=== PATIENT | female | born 1940 | race Caucasian/White ===

== ENCOUNTER → 2016-07-01 | Outpatient (CLI) | payer MEDICARE ==
[~2016-07-01] MED LIST: ACYCLOVIR800 MG PO; ALPHAGAN-P 0.2%5 ML OPH; ASPIRIN81 M1 PO; CANASA1000 MG RC; CEPHALEXIN500 M1 PO; DELTASONE1 MG PO; DELTASONE5 MG PO; FENTANYL TR25 MCG/HR TD; HYZAAR 25 MG-101 TA1 PO; HYZAAR 50/12.5M1 TAB PO; KEFLEX500 MG PO; LATANOPROST2.5 ML OP; MACROBID100 M1 PO; METHOTREXATE2.5 M1 PO; MULTIPLE VITAMI1 TA5 PO; NATURE'S BLEND F1 MG PO; PREMARIN0.3 M1 PO; PREMARIN0.3 MG PO; PRILOSEC OTC20 MG PO; SLOW FE45 MG PO; SYNTHROID,LEVO75 MCG PO; SYNTHROID0.075 MG PO; SYNTHROID0.125 MG PO; TRADJENTA5 M1 PO; TRAJENTA PO; VICO75300 PO; VITAMIN B COMPL1 CAP PO; VITAMIN D1000 IU PO
[2016-07-01 09:10] LABS: HEMOGLOBIN 9.3 g/dl (12.0-16.0); MEAN CELL VOLUME 112.4 fl (81.0-99.0); MEAN CORPUSCULAR HGB CONC 32.1 g/dl (33.0-37.0); MEAN PLATELET VOLUME 11.8 fl (9.6-12.3); PLATELET COUNT AUTOMATED 174 10*3/uL (130-400); RED BLOOD COUNT 2.58 10*6/uL (4.10-5.10); RED CELL DISTRI WIDTH 14.3 % (0-14.5); WHITE BLOOD COUNT 7.8 10*3/uL (4.8-10.8)
[2016-07-01 09:26] LABS: ALBUMIN 3.6 gm/dl (3.1-4.5); BILIRUBIN, DIRECT 0.2 mg/dL (0.0-0.2); BILIRUBIN, TOTAL 0.7 mg/dl (0.2-1.0); HEMOGLOBIN A1c 5.8 % (4.8-5.6); POTASSIUM 4.4 mmol/L (3.5-5.1); TOTAL PROTEIN 6.7 gm/dL (6.4-8.2)
[2016-07-01 09:28] LABS: EOSINOPHIL # 0.1 10*3/uL (0-0.4); EOSINOPHILS 1 % (1-4); LYMPHOCYTE # 0.9 10*3/uL (1.3-4.4); MONOCYTE # 0.2 10*3/uL (0.1-1.0); NEUTROPHIL # 6.6 10*3/uL (2.3-7.9); NEUTROPHILS 84 % (47-73); PLATELET SUFFICIENCY NORMAL (NORMAL); TOTAL CELLS COUNTED 100 #CELLS
[2016-07-01 09:33] LABS: FREE T4 1.32 ng/dl (0.76-1.46); THYROID STIM HORMONE (HS) 0.236 uIU/ml (0.358-4.75)
== END | disposition home or self-care (01) ==
LOC: LAB 08:51
PROVIDERS: Internal Medicine
DX: I12.9 Hypertensive chronic kidney disease with stage 1 through stage 4 chronic kidney disease, or unspecified chronic kidney disease (principal); E11.22 Type 2 diabetes mellitus with diabetic chronic kidney disease; N18.3 Chronic kidney disease, stage 3 (moderate); E03.8 Other specified hypothyroidism; D50.9 Iron deficiency anemia, unspecified; E78.4 Other hyperlipidemia

== ENCOUNTER → 2016-09-05 | Outpatient (CLI) | payer MEDICARE ==
[2016-09-05 10:41] LABS: HEMATOCRIT 31.1 % (37.0-47.0); HEMOGLOBIN 9.7 g/dl (12.0-16.0); MEAN CELL VOLUME 112.3 fl (81.0-99.0); MEAN CORPUSCULAR HGB CONC 31.2 g/dl (33.0-37.0); MEAN PLATELET VOLUME 12.3 fl (9.6-12.3); PLATELET COUNT AUTOMATED 158 10*3/uL (130-400); RED BLOOD COUNT 2.77 10*6/uL (4.10-5.10); RED CELL DISTRI WIDTH 13.7 % (0-14.5); WHITE BLOOD COUNT 7.2 10*3/uL (4.8-10.8)
[2016-09-05 11:00] LABS: LYMPHOCYTE # 1.2 10*3/uL (1.3-4.4); MONOCYTE # 0.7 10*3/uL (0.1-1.0); NEUTROPHIL # 5.3 10*3/uL (2.3-7.9); NEUTROPHILS 73 % (47-73); TOTAL CELLS COUNTED 100 #CELLS
[2016-09-05 11:01] LABS: PLATELET SUFFICIENCY NORMAL (NORMAL)
[2016-09-05 11:14] LABS: BUN 33 mg/dl (7-24); EST GLOM FILT AFRICAN AMERICAN 44 ml/min; SGOT/AST 25 IU/L (3-35); SGPT/ALT 23 U/L (12-78)
[2016-09-05 11:20] LABS: C-REACTIVE PROTEIN < 0.29 MG/DL (0-0.3)
== END | disposition home or self-care (01) ==
LOC: LAB 10:10
PROVIDERS: Specialist
DX: M06.9 Rheumatoid arthritis, unspecified (principal); R53.83 Other fatigue

== ENCOUNTER → 2016-12-26 | Outpatient (CLI) | payer MEDICARE ==
[2016-12-26 09:09] LABS: HEMATOCRIT 29.6 % (37.0-47.0); HEMOGLOBIN 9.1 g/dl (12.0-16.0); MEAN CELL VOLUME 112.5 fl (81.0-99.0); MEAN CORPUSCULAR HGB 34.6 pg (27.0-31.0); MEAN CORPUSCULAR HGB CONC 30.7 g/dl (33.0-37.0); MEAN PLATELET VOLUME 11.4 fl (9.6-12.3); PLATELET COUNT AUTOMATED 159 10*3/uL (130-400); RED BLOOD COUNT 2.63 10*6/uL (4.10-5.10); RED CELL DISTRI WIDTH 14.4 % (0-14.5); WHITE BLOOD COUNT 6.8 10*3/uL (4.8-10.8)
[2016-12-26 09:43] LABS: ALBUMIN 3.3 gm/dl (3.1-4.5); BILIRUBIN, DIRECT 0.2 mg/dL (0.0-0.2); CREATININE 1.44 mg/dL (0.55-1.02); FREE T4 1.33 ng/dl (0.76-1.46); POTASSIUM 4.5 mmol/L (3.5-5.1)
[2016-12-26 09:48] LABS: THYROID STIM HORMONE (HS) 0.905 uIU/ml (0.358-4.75); TOTAL PROTEIN 6.4 gm/dL (6.4-8.2)
[2016-12-26 10:44] LABS: BASOPHILS 1 % (0-1); TOTAL CELLS COUNTED 100 #CELLS
[2016-12-26 10:45] LABS: PLATELET SUFFICIENCY NORMAL (NORMAL); POLYCHROMASIA SLIGHT
== END | disposition home or self-care (01) ==
LOC: LAB 08:50
PROVIDERS: Internal Medicine
DX: I12.9 Hypertensive chronic kidney disease with stage 1 through stage 4 chronic kidney disease, or unspecified chronic kidney disease (principal); E11.22 Type 2 diabetes mellitus with diabetic chronic kidney disease; N18.3 Chronic kidney disease, stage 3 (moderate); E78.4 Other hyperlipidemia; D50.9 Iron deficiency anemia, unspecified; E03.8 Other specified hypothyroidism; I25.10 Atherosclerotic heart disease of native coronary artery without angina pectoris

== ENCOUNTER 2017-05-14 22:42 | Emergency (ER) | payer MEDICARE ==
[~2017-05-14] VITALS: Ht 162.5 cm; Wt 68.0 kg
[2017-05-14] MEDS ORDERED: CEPHALEXIN500 M1 PO (23:41)
== END 2017-05-15 00:21 | disposition home or self-care (01) ==
LOC: ED 22:42
DX: S81.812A Laceration without foreign body, left lower leg, initial encounter (principal); Z90.710 Acquired absence of both cervix and uterus; Z98.890 Other specified postprocedural states; Z79.899 Other long term (current) drug therapy; Z88.2 Allergy status to sulfonamides; Z88.5 Allergy status to narcotic agent; W55.89XA Other contact with other mammals, initial encounter; Y93.89 Activity, other specified; Y92.89 Other specified places as the place of occurrence of the external cause; Y99.9 Unspecified external cause status

== ENCOUNTER → 2017-05-17 | Outpatient (CLI) | payer MEDICARE | END | disposition home or self-care (01) | LOC: WOUNDCARE 01:37 | DX: I87.332 Chronic venous hypertension (idiopathic) with ulcer and inflammation of left lower extremity (principal); L97.222 Non-pressure chronic ulcer of left calf with fat layer exposed; Z90.710 Acquired absence of both cervix and uterus ==

== ENCOUNTER → 2017-05-25 | Outpatient (CLI) | payer MEDICARE | END | disposition home or self-care (01) | LOC: US 02:34 | DX: I73.9 Peripheral vascular disease, unspecified (principal); I87.332 Chronic venous hypertension (idiopathic) with ulcer and inflammation of left lower extremity; L97.422 Non-pressure chronic ulcer of left heel and midfoot with fat layer exposed ==

== ENCOUNTER → 2017-05-30 | Outpatient (CLI) | payer MEDICARE | END | disposition home or self-care (01) | LOC: WOUNDCARE 04:15 | DX: S81.802D Unspecified open wound, left lower leg, subsequent encounter (principal); I87.2 Venous insufficiency (chronic) (peripheral); I10 Essential (primary) hypertension; Z90.710 Acquired absence of both cervix and uterus; X58.XXXD Exposure to other specified factors, subsequent encounter ==

== ENCOUNTER → 2017-06-07 | Outpatient (CLI) | payer MEDICARE | END | disposition home or self-care (01) | LOC: WOUNDCARE 01:38 | DX: I87.332 Chronic venous hypertension (idiopathic) with ulcer and inflammation of left lower extremity (principal); L97.222 Non-pressure chronic ulcer of left calf with fat layer exposed; E07.9 Disorder of thyroid, unspecified; Z90.710 Acquired absence of both cervix and uterus ==

== ENCOUNTER → 2017-06-14 | Outpatient (CLI) | payer MEDICARE | END | disposition home or self-care (01) | LOC: WOUNDCARE 03:58 | DX: I87.332 Chronic venous hypertension (idiopathic) with ulcer and inflammation of left lower extremity (principal); L97.222 Non-pressure chronic ulcer of left calf with fat layer exposed; I10 Essential (primary) hypertension; Z90.710 Acquired absence of both cervix and uterus ==

== ENCOUNTER → 2017-06-28 | Outpatient (CLI) | payer MEDICARE | END | disposition home or self-care (01) | LOC: WOUNDCARE 01:44 | DX: I87.332 Chronic venous hypertension (idiopathic) with ulcer and inflammation of left lower extremity (principal); L97.222 Non-pressure chronic ulcer of left calf with fat layer exposed; E07.9 Disorder of thyroid, unspecified; Z90.710 Acquired absence of both cervix and uterus ==

== ENCOUNTER → 2017-07-05 | Outpatient (CLI) | payer MEDICARE | END | disposition home or self-care (01) | LOC: WOUNDCARE 01:47 | DX: I87.332 Chronic venous hypertension (idiopathic) with ulcer and inflammation of left lower extremity (principal); L97.222 Non-pressure chronic ulcer of left calf with fat layer exposed; Z90.710 Acquired absence of both cervix and uterus ==

== ENCOUNTER → 2017-07-12 | Outpatient (CLI) | payer MEDICARE | END | disposition home or self-care (01) | LOC: WOUNDCARE 02:11 | DX: I87.332 Chronic venous hypertension (idiopathic) with ulcer and inflammation of left lower extremity (principal); L97.222 Non-pressure chronic ulcer of left calf with fat layer exposed; E07.9 Disorder of thyroid, unspecified; Z90.710 Acquired absence of both cervix and uterus ==

== ENCOUNTER 2017-08-01 19:18 | Inpatient (IN) | payer MEDICARE ==
[~2017-08-01] VITALS: Ht 162.6 cm; Wt 71.0 kg
[2017-08-01 19:28] VITALS: BP 161/62
[2017-08-01 20:00] VITALS: BP 152/60
[2017-08-01 20:13] LABS: BILIRUBIN NEGATIVE (NEGATIVE); BLOOD 2+ (NEGATIVE); CLARITY SL CLOUDY (CLEAR); COLOR YELLOW (YELLOW); GLUCOSE NEGATIVE (NEGATIVE); KETONE NEGATIVE (NEGATIVE); LEUKO ESTERASE 1+ (NEGATIVE); NITRITE NEGATIVE (NEGATIVE); UROBILINOGEN 0.2 E.U./dl (0.2-1.0)
[2017-08-01 20:14] LABS: BASO % 0.3 % (0.0-1.0); EOS # 0.2 10*3/uL (0.0-0.4); EOS % 1.5 % (1.0-4.0); HEMATOCRIT 35.4 % (37.0-47.0); HEMOGLOBIN 11.1 g/dl (12.0-16.0); LYMPH # 1.5 10*3/uL (1.3-4.4); LYMPH % 15.4 % (27.0-41.0); MEAN CELL VOLUME 106.3 fl (81.0-99.0); MEAN CORPUSCULAR HGB 33.3 pg (27.0-31.0); MEAN CORPUSCULAR HGB CONC 31.4 g/dl (33.0-37.0); MONO # 0.7 10*3/uL (0.1-1.0); MONO % 6.7 % (3.0-9.0); NEUT # 7.2 10*3/uL (2.3-7.9); NEUT % 74.9 % (47.0-73.0); PLATELET COUNT AUTOMATED 245 10*3/uL (130-400); RED BLOOD COUNT 3.33 10*6/uL (4.10-5.10); RED CELL DISTRI WIDTH 13.3 % (0-14.5); WHITE BLOOD COUNT 9.7 10*3/uL (4.8-10.8)
[2017-08-01 20:29] LABS: ALBUMIN 3.4 gm/dl (3.1-4.5); CREATININE 1.48 mg/dL (0.55-1.02); POTASSIUM 4.7 mmol/L (3.5-5.1); TOTAL PROTEIN 7.2 gm/dL (6.4-8.2)
[2017-08-01 20:32] LABS: BACTERIA 4+; RBC 0-2 rbc/hpf (0-2)
[2017-08-01 22:12] VITALS: BP 152/60
[2017-08-02] VITALS: BP 152/60
[2017-08-02 03:40] LABS: HEMATOCRIT 31.9 % (37.0-47.0); HEMOGLOBIN 9.8 g/dl (12.0-16.0); MEAN CELL VOLUME 108.9 fl (81.0-99.0); MEAN CORPUSCULAR HGB 33.4 pg (27.0-31.0); MEAN CORPUSCULAR HGB CONC 30.7 g/dl (33.0-37.0); MEAN PLATELET VOLUME 10.8 fl (9.6-12.3); PLATELET COUNT AUTOMATED 216 10*3/uL (130-400); RED BLOOD COUNT 2.93 10*6/uL (4.10-5.10); RED CELL DISTRI WIDTH 13.3 % (0-14.5); WHITE BLOOD COUNT 7.8 10*3/uL (4.8-10.8)
[2017-08-02 04:10] LABS: BASOPHILS 1 % (0-1); PLATELET SUFFICIENCY NORMAL (NORMAL); TOTAL CELLS COUNTED 100 #CELLS
[2017-08-02 04:11] LABS: SCHISTOCYTES FEW
[2017-08-02 04:16] LABS: ALBUMIN 2.8 gm/dl (3.1-4.5); CREATININE 1.4 mg/dL (0.55-1.02); PHOSPHOROUS 3.7 mg/dL (2.5-4.9); POTASSIUM 4.4 mmol/L (3.5-5.1); TOTAL PROTEIN 6.3 gm/dL (6.4-8.2)
[2017-08-02 04:22] LABS: FREE T4 1.52 ng/dl (0.76-1.46); THYROID STIM HORMONE (HS) 1.56 uIU/ml (0.358-4.75)
[2017-08-02 07:29] LABS: VITAMIN D, 25-HYDROXY 33.1 ng/mL (30-100)
[2017-08-02 08:00] VITALS: BP 172/52
[2017-08-02 16:00] VITALS: BP 136/63
[2017-08-02 20:00] VITALS: BP 145/49
[2017-08-03 00:22] VITALS: BP 123/45
[2017-08-03 06:31] LABS: HEMATOCRIT 31.4 % (37.0-47.0); HEMOGLOBIN 9.8 g/dl (12.0-16.0); MEAN CELL VOLUME 108.3 fl (81.0-99.0); MEAN CORPUSCULAR HGB 33.8 pg (27.0-31.0); MEAN CORPUSCULAR HGB CONC 31.2 g/dl (33.0-37.0); MEAN PLATELET VOLUME 11.4 fl (9.6-12.3); PLATELET COUNT AUTOMATED 248 10*3/uL (130-400); RED CELL DISTRI WIDTH 13.2 % (0-14.5); WHITE BLOOD COUNT 7.5 10*3/uL (4.8-10.8)
[2017-08-03 06:42] LABS: CREATININE 1.3 mg/dL (0.55-1.02); POTASSIUM 4.2 mmol/L (3.5-5.1)
[2017-08-03 07:33] LABS: OVALOCYTES MODERATE; TOTAL CELLS COUNTED 100 #CELLS
[2017-08-03 07:34] LABS: PLATELET SUFFICIENCY NORMAL (NORMAL)
[2017-08-03 08:00] VITALS: BP 175/46
[2017-08-03 12:00] VITALS: BP 136/40
[2017-08-03 16:00] VITALS: BP 149/57
[2017-08-03 20:00] VITALS: BP 138/47
[2017-08-04] VITALS: BP 135/54
[2017-08-04 06:16] LABS: HEMATOCRIT 31.1 % (37.0-47.0); HEMOGLOBIN 9.8 g/dl (12.0-16.0); MEAN CELL VOLUME 107.2 fl (81.0-99.0); MEAN CORPUSCULAR HGB 33.8 pg (27.0-31.0); MEAN CORPUSCULAR HGB CONC 31.5 g/dl (33.0-37.0); MEAN PLATELET VOLUME 11.2 fl (9.6-12.3); PLATELET COUNT AUTOMATED 258 10*3/uL (130-400); RED CELL DISTRI WIDTH 13.2 % (0-14.5); WHITE BLOOD COUNT 8.3 10*3/uL (4.8-10.8)
[2017-08-04 06:29] LABS: CREATININE 1.19 mg/dL (0.55-1.02)
[2017-08-04 07:48] LABS: BASOPHILS 1 % (0-1); OVALOCYTES FEW; PLATELET SUFFICIENCY NORMAL (NORMAL); TOTAL CELLS COUNTED 100 #CELLS
[2017-08-04 08:00] VITALS: BP 151/53
[2017-08-04] MEDS ORDERED: LEVAQUIN750 M1 PO (11:44)
== END 2017-08-04 11:36 | disposition home or self-care (01) | DRG 871 ==
LOC: ED 19:18 → EDHOLD 21:08 → 4E 21:08
PROVIDERS: Emergency Medicine; Family Medicine; Internal Medicine
DX: A41.9 Sepsis, unspecified organism (principal); J18.1 Lobar pneumonia, unspecified organism; D53.9 Nutritional anemia, unspecified; I08.1 Rheumatic disorders of both mitral and tricuspid valves; E11.9 Type 2 diabetes mellitus without complications; N30.00 Acute cystitis without hematuria; K57.30 Diverticulosis of large intestine without perforation or abscess without bleeding; D72.810 Lymphocytopenia; M54.5 Low back pain; I10 Essential (primary) hypertension; E03.9 Hypothyroidism, unspecified; M06.9 Rheumatoid arthritis, unspecified; D63.8 Anemia in other chronic diseases classified elsewhere; Z79.899 Other long term (current) drug therapy; I25.2 Old myocardial infarction; Z88.2 Allergy status to sulfonamides; Z88.8 Allergy status to other drugs, medicaments and biological substances; Z98.42 Cataract extraction status, left eye; Z90.711 Acquired absence of uterus with remaining cervical stump; Z82.3 Family history of stroke

== ENCOUNTER 2018-06-19 12:50 | Emergency (ER) | payer MEDICARE, OTHER ==
[~2018-06-19] VITALS: Ht 160 cm; Wt 68.5 kg
--- NOTE | ~2018-06-19 | EKG ---
[place], [place] ELECTROCARDIOGRAM REPORT NAME: STEPHANIE PLASCENCIA UNIT #: [id number] ROOM: DOCTOR: EDDIE DRAFT REPORT BIRTHDATE: [birth year] [facility] Test Date: 2018-06-19 Test Time: 13:00:22 Pat Name: STEPHANIE PLASCENCIA Department: Room: Gender: F Special Needs Child Caregiver: JORJE : 1940 Requested By: LEON DE Order Number: [id number] Reading MD: Shayy Khan Measurements Intervals [place] Rate: 80 P: 22 AR: 156 QRS: 8 QRSD: 134 T: 25 QT: 389 QTc: 449 Interpretive Statements Sinus rhythm Right bundle branch block No previous ECG available for comparison Electronically Signed On 06-20-2018 10:57:45 PDT by Shayy Khan CM:EKGRPT:ELECTROCARDIOGRAM REPORT 1300 [id number] LEON MORGAN DRAFT REPORT LEON DE M.D.
--- NOTE | ~2018-06-19 | EKG ---
[place], [place] ELECTROCARDIOGRAM REPORT NAME: STEPHANIE PLASCENCIA UNIT #: [id number] ROOM: DOCTOR: VANDANAANY DRAFT REPORT BIRTHDATE: [birth year] [facility] Test Date: 2018-06-19 Test Time: 19:17:33 Pat Name: STEPHANIE PLASCENCIA Department: Room: Gender: F Clay Preparation Supervisor: Amalia To : 1940 Requested By: LEON DE Order Number: [id number] Reading MD: Shayy Khan Measurements Intervals [place] Rate: 78 P: 38 NC: 159 QRS: -17 QRSD: 133 T: 2 QT: 381 QTc: 434 Interpretive Statements Sinus rhythm Right bundle branch block No previous ECG available for comparison Electronically Signed On 06-20-2018 11:02:25 PDT by Shayy Khan CM:EKGRPT:ELECTROCARDIOGRAM REPORT 16 1102 LEON MORGAN DRAFT REPORT LEON DE M.D.
--- NOTE | ~2018-06-19 | EKG ---
[place], [place] ELECTROCARDIOGRAM REPORT NAME: STEPHANIE PLASCENCIA UNIT #: [id number] ROOM: DOCTOR: EDDIE DRAFT REPORT BIRTHDATE: [birth year] [facility] Test Date: 2018-06-19 Test Time: 15:57:03 Pat Name: STEPHANIE PLASCENCIA Department: Room: Gender: F Manager Pacu: Amalia To : 1940 Requested By: LEON DE Order Number: [id number] Reading MD: Shayy Khan Measurements Intervals [place] Rate: 77 P: MT: QRS: -14 QRSD: 129 T: -6 QT: 368 QTc: 417 Interpretive Statements Sinus rhythm Right bundle branch block No previous ECG available for comparison Electronically Signed On 06-20-2018 10:59:55 PDT by Shayy Khan CM:EKGRPT:ELECTROCARDIOGRAM REPORT [id number] LEON MORGAN DRAFT REPORT LEON DE M.D.
[~2018-06-19 12:50] MED LIST changes: +LEVAQUIN750 M1 PO
[2018-06-19 13:15] LABS: HEMATOCRIT 28.2 % (37.0-47.0); HEMOGLOBIN 8.7 g/dl (12.0-16.0); MEAN CELL VOLUME 110.6 fl (81.0-99.0); MEAN CORPUSCULAR HGB 34.1 pg (27.0-31.0); MEAN CORPUSCULAR HGB CONC 30.9 g/dl (33.0-37.0); MEAN PLATELET VOLUME 11.1 fl (9.6-12.3); PLATELET COUNT AUTOMATED 221 10*3/uL (130-400); RED BLOOD COUNT 2.55 10*6/uL (4.10-5.10); RED CELL DISTRI WIDTH 14.6 % (0-14.5)
[2018-06-19 13:24] LABS: ACT PARTIAL THROMBO TIME 20.6 SECONDS (20.8-31.5)
[2018-06-19 13:34] LABS: BASOPHILS 1 % (0-1); PLATELET SUFFICIENCY NORMAL (NORMAL); TOTAL CELLS COUNTED 100 #CELLS
[2018-06-19 13:49] LABS: CREATININE 1.35 mg/dL (0.55-1.02); TOTAL PROTEIN 6.8 gm/dL (6.4-8.2)
[2018-06-19 13:50] LABS: TROPONIN I 0.026 ng/ml (<0.045)
[2018-06-19 14:07] LABS: BILIRUBIN NEGATIVE (NEGATIVE); BLOOD TRACE-LYSED (NEGATIVE); CLARITY SL CLOUDY (CLEAR); COLOR YELLOW (YELLOW); GLUCOSE NEGATIVE (NEGATIVE); KETONE NEGATIVE (NEGATIVE); LEUKO ESTERASE NEGATIVE (NEGATIVE); NITRITE POSITIVE (NEGATIVE); UROBILINOGEN 0.2 E.U./dl (0.2-1.0)
[2018-06-19 14:24] LABS: BACTERIA 4+
[2018-07-17] MEDS ORDERED: TYLENOL325 M3 PO (13:57)
[2018-07-17] MEDS ORDERED: TREXALL15 MG PO (14:00)
[2018-07-17] MEDS ORDERED: METHOTREXATE2.5 MG PO (15:37)
[2018-07-17] MEDS ORDERED: COREG3.125 MG PO (15:39)
[2018-07-17] MEDS ORDERED: PREDNISONE5 MG PO (15:39)
[2018-07-17] MEDS ORDERED: COZAAR100 MG PO (15:40)
[2018-07-17] MEDS ORDERED: ANASTROZOLE1 M1 PO (15:40)
[2018-07-17] MEDS ORDERED: IRBESARTAN150 MG PO (15:40)
[2018-07-17] MEDS ORDERED: PROTONIX40 MG PO (15:40)
[2018-07-17] MEDS ORDERED: HYDROCODONE-AC1 EACH PO (21:26)
[2018-07-17] MEDS ORDERED: SYNTHROID,LEVO75 MCG PO (21:28)
[2018-07-18] MEDS ORDERED: LOSARTAN-HCTZ1 EAC1 PO (19:44)
[2018-07-18] MEDS ORDERED: BETIMOL5 M1 OP (19:46)
[2018-07-18] MEDS ORDERED: LIPITOR20 MG PO (19:50)
[2018-07-19] MEDS ORDERED: FLUCONAZOLE100 MG PO (14:51)
[2018-07-19] MEDS ORDERED: VANCOMYCIN250 MG/2.5 PO (14:51)
[2018-07-19] MEDS ORDERED: Synthroid,Levo50 MCG PO (14:51)
[2018-07-19] MEDS ORDERED: ASPIRIN ADULT L81 M2 PO (14:51)
[2018-07-19] MEDS ORDERED: CARVEDILOL6.25 MG PO (14:51)
[2018-07-20] MEDS ORDERED: VANCOMYCIN250 MG/2.5 PO (09:56)
[2018-07-20] MEDS ORDERED: FLUCONAZOLE100 MG PO (09:56)
[2018-07-20] MEDS ORDERED: HYDROCODON-ACE1 EACH PO (09:56)
== END 2018-06-19 19:53 | disposition short-term general hospital (02) ==
LOC: ED 12:50
PROVIDERS: Emergency Medicine; Family Medicine
DX: K57.92 Diverticulitis of intestine, part unspecified, without perforation or abscess without bleeding (principal); N32.2 Vesical fistula, not elsewhere classified; N39.0 Urinary tract infection, site not specified; E11.9 Type 2 diabetes mellitus without complications; I10 Essential (primary) hypertension; E03.9 Hypothyroidism, unspecified; I25.2 Old myocardial infarction; M06.9 Rheumatoid arthritis, unspecified; Z88.2 Allergy status to sulfonamides; Z88.8 Allergy status to other drugs, medicaments and biological substances; Z79.899 Other long term (current) drug therapy; Z79.2 Long term (current) use of antibiotics; Z90.49 Acquired absence of other specified parts of digestive tract; Z90.710 Acquired absence of both cervix and uterus

== ENCOUNTER 2019-01-10 20:24 | Inpatient (IN) | payer MEDICARE, OTHER ==
[~2019-01-10] VITALS: Ht 160 cm; Wt 60.0 kg
[~2019-01-10 20:24] MED LIST changes: +ANASTROZOLE1 M1 PO; +ASPIRIN ADULT L81 M2 PO; +BETIMOL5 M1 OP; +CARVEDILOL6.25 MG PO; +COREG3.125 MG PO; +COZAAR100 MG PO; +FLUCONAZOLE100 MG PO; +HYDROCODON-ACE1 EACH PO; +HYDROCODONE-AC1 EACH PO; +IRBESARTAN150 MG PO; +LIPITOR20 MG PO; +LOSARTAN-HCTZ1 EAC1 PO; +METHOTREXATE2.5 MG PO; +PREDNISONE5 MG PO; +PROTONIX40 MG PO; +Synthroid,Levo50 MCG PO; +TREXALL15 MG PO; +TYLENOL325 M3 PO; +VANCOMYCIN250 MG/2.5 PO
[2019-01-10 20:30] VITALS: BP 173/65
[2019-01-10 21:04] LABS: HEMATOCRIT 36.3 % (37.0-47.0); HEMOGLOBIN 11.7 g/dl (12.0-16.0); MEAN CELL VOLUME 107.7 fl (81.0-99.0); MEAN CORPUSCULAR HGB 34.7 pg (27.0-31.0); MEAN CORPUSCULAR HGB CONC 32.2 g/dl (33.0-37.0); MEAN PLATELET VOLUME 10.8 fl (9.6-12.3); PLATELET COUNT AUTOMATED 165 10*3/uL (130-400); RED BLOOD COUNT 3.37 10*6/uL (4.10-5.10); RED CELL DISTRI WIDTH 12.4 % (0-14.5); WHITE BLOOD COUNT 7.7 10*3/uL (4.8-10.8)
[2019-01-10 21:20] LABS: ALBUMIN 2.9 gm/dl (3.1-4.5); CREATININE 1.1 mg/dL (0.55-1.02); POTASSIUM 3.9 mmol/L (3.5-5.1); TOTAL PROTEIN 6.9 gm/dL (6.4-8.2)
[2019-01-10 21:28] LABS: TOTAL CELLS COUNTED 100 #CELLS
[2019-01-10 21:29] LABS: PLATELET SUFFICIENCY NORMAL (NORMAL); POLYCHROMASIA SLIGHT
[2019-01-10 21:53] LABS: BILIRUBIN NEGATIVE (NEGATIVE); BLOOD 1+ (NEGATIVE); CLARITY SL CLOUDY (CLEAR); COLOR YELLOW (YELLOW); GLUCOSE NEGATIVE (NEGATIVE); KETONE NEGATIVE (NEGATIVE); LEUKO ESTERASE NEGATIVE (NEGATIVE); NITRITE NEGATIVE (NEGATIVE); SPECIFIC GRAVITY 1.015 (1.005-1.030); UROBILINOGEN 0.2 E.U./dl (0.2-1.0)
[2019-01-10 22:07] LABS: BACTERIA 3+; RBC 0-2 rbc/hpf (0-2)
--- NOTE | 2019-01-10 23:16 | NUR ---
PT MEDICATED PER EMAR FOR PAIN. PULSE OX IN PLACE.
[2019-01-11] VITALS (7 sets, daily range): BP systolic 109–170; BP diastolic 43–69
--- NOTE | 2019-01-11 01:15 | NUR ---
Time: 114 A 78 year old FEMALE admitted to 4E under services of VANESSA PARKER DO. Pt. arrived via stretcher from ER. Chief complaint: MULTIPLE COMPLAINTS. JARROD STERN
--- NOTE | 2019-01-11 01:45 | NUR ---
PATIENT UNSURE OF HOME MEDICATIONS AND ER LOST PATIENTS HOME MED LIST. FAMILY TO BRING MEDS IN THE AM. DR. WOOD MADE AWARE.
--- NOTE | 2019-01-11 02:25 | NUR ---
NOTIFIED DR. ANDERSON OF PATIENT HIGH BLOOD PRESSURE 170/66. 0.1MG OF CATAPRESS ORDERED. WILL CONTINUE TO MONITOR.
--- NOTE | 2019-01-11 03:25 | NUR ---
PATIENT GIVEN CLONIDINE AT THIS TIME. ASYMPTOMATIC. WILL RECHECK BLOOD PRESSURE.
--- NOTE | 2019-01-11 05:06 | NUR ---
PATIENT COMPLAINING OF ABDOMINAL PAIN. RATES 07/20. MEDICATED WITH NORCO. WILL CHECK EFFECTIVENESS.
--- NOTE | 2019-01-11 05:15 | NUR ---
NOTIFIED DR. ANDERSON OF PATIENTS NEW PRESSURE. 138/69. WILL CONTINUE TO MONIOTR.
[2019-01-11 07:10] LABS: HEMATOCRIT 33.3 % (37.0-47.0); HEMOGLOBIN 10.5 g/dl (12.0-16.0); MEAN CELL VOLUME 107.4 fl (81.0-99.0); MEAN CORPUSCULAR HGB 33.9 pg (27.0-31.0); MEAN CORPUSCULAR HGB CONC 31.5 g/dl (33.0-37.0); MEAN PLATELET VOLUME 11.1 fl (9.6-12.3); PLATELET COUNT AUTOMATED 165 10*3/uL (130-400); RED CELL DISTRI WIDTH 12.5 % (0-14.5); WHITE BLOOD COUNT 7.4 10*3/uL (4.8-10.8)
[2019-01-11 07:34] LABS: ALBUMIN 2.6 gm/dl (3.1-4.5); BUN 35 mg/dl (7-24); CHLORIDE 107 mmol/L (98-107); CREATININE 1.01 mg/dL (0.55-1.02); PHOSPHOROUS 3.7 mg/dL (2.5-4.9); POTASSIUM 3.9 mmol/L (3.5-5.1); SGOT/AST 27 IU/L (3-35); SGPT/ALT 23 U/L (12-78); SODIUM 140 mmol/L (136-145); TOTAL PROTEIN 6.1 gm/dL (6.4-8.2)
[2019-01-11 07:37] LABS: ACT PARTIAL THROMBO TIME 20.8 SECONDS (20.0-32.1)
--- NOTE | 2019-01-11 07:40 | NUR ---
PER PATIENT ARNOLDO EFFECTIVE. WILL CONTINUE TO MONITOR.
[2019-01-11 07:44] LABS: ALKALINE PHOSPHATASE 70 U/L (45-117)
[2019-01-11 07:57] LABS: BASOPHILS 1 % (0-1); PLATELET SUFFICIENCY NORMAL (NORMAL); TOTAL CELLS COUNTED 100 #CELLS
[2019-01-11 08:09] LABS: VITAMIN D, 25-HYDROXY 25.5 ng/mL (30-100)
--- NOTE | 2019-01-11 09:00 | NUR ---
Underground Truck Operator in to talk to patient. Patient states lives at home with family. There are few steps in the home. Physician: elizabeth wallace Pharmacy: [facility] [place] [facility] services: none Patient's level of ADLs: MINIMAL ASSIST Patient has working utilities: all working DME: none Follow-up physician's appointment after d/c: will be made by hospitalist nurse director upon discharge Does patient want to access PORTAL?: no Discharge plan discussed with patient, she lives at home, states she gets around fine, she states she will return home when medically stable and denies any home needs. MONICA ANDINO
--- NOTE | 2019-01-11 09:45 | NUR ---
PT COMPLAINING OF ABD PAIN AND NAUSEA WHILE DRINKING CT PREP. MEDICATED WITH NORCO AND ZOFRAN PER PRN ORDER. WILL MONITOR FOR EFFECTIVENESS.
[2019-01-11] MEDS ORDERED: Synthroid,Lev125 MCG PO (10:21)
[2019-01-11] MEDS ORDERED: NATURE'S BLEND F1 MG PO (10:22)
[2019-01-11] MEDS ORDERED: IRON325 M1 PO (10:23)
[2019-01-11] MEDS ORDERED: PROBIOTIC1 EAC4 PO (10:24)
[2019-01-11] MEDS ORDERED: FIBER500 MG PO (10:25)
[2019-01-11] MEDS ORDERED: PROTONIX40 MG PO (10:26)
[2019-01-11] MEDS ORDERED: NORVASC5 MG PO (10:28)
[2019-01-11] MEDS ORDERED: TRAMADOL HCL50 MG PO (10:29)
--- NOTE | 2019-01-11 11:00 | NUR ---
DR HAMM MADE AWARE OF UPDATED MED REC.
--- NOTE | 2019-01-11 11:11 | NUR ---
PT OFF FLOOR FOR CT ABD, PT UNABLE TO DRINK MUCH OF CT PREP.
--- NOTE | 2019-01-11 11:28 | NUR ---
PT STATES PAIN HAS IMPROVED SOME, BUT SHE IS STILL FEELING NAUSEATED.
--- NOTE | 2019-01-11 11:59 | NUR ---
PT COMPLAINING OF SEVERE ABD PAIN CONTINUED NAUSEA. SPOKE WITH DR HAMM REGARDING THIS. ORDER RECEIVED FOR 1X DOSE OF PHENERGAN.
--- NOTE | 2019-01-11 12:28 | NUR ---
1X DOSE OF PHENERGAN AND PRN MORPHINE GIVEN FOR 10/10 LOWER ABD PAIN AND CONTINUED NAUSEA. WILL MONITOR FOR EFFECTIVENESS.
--- NOTE | 2019-01-11 13:37 | NUR ---
PT RESTING, EARLIER MEDICATIONS EFFECTIVE AT THIS TIME.
--- NOTE | 2019-01-11 16:07 | NUR ---
Nursing screen received and chart reviewed. Patient was admitted with abdominal pain and high blood pressure. Patient lives with her family who assist with her ADLs. At this time, no OT indicated. Thank you. Crista Reed OTR/l
--- NOTE | 2019-01-11 16:19 | NUR ---
PT INQUIRING TO IF SHE CAN HAVE ANYTHING TO EAT/DRINK SINCE SHE WAS NPO FOR ULTRASOUND. SPOKE WITH DR HURTADO REGARDING PT'S STATUS, INTERMITTENT NAUSEA/VOMITING, ABD PAIN , CT RESULTS. STATES OK TO GIVE FULL LIQUID DIET AND UPDATE IF EMESIS CONTINUES.
--- NOTE | 2019-01-11 17:26 | NUR ---
MEDICATED WITH DULCOLAX PER PRN ORDER FOR CONSTIPATION. WILL MONITOR FOR EFFECTIVENESS.
[2019-01-12] VITALS: BP 122/47
[2019-01-12 08:00] VITALS: BP 129/55
[2019-01-12 08:18] LABS: HEMATOCRIT 34.4 % (37.0-47.0); MEAN CELL VOLUME 107.8 fl (81.0-99.0); MEAN CORPUSCULAR HGB 34.5 pg (27.0-31.0); PLATELET COUNT AUTOMATED 164 10*3/uL (130-400); RED BLOOD COUNT 3.19 10*6/uL (4.10-5.10); RED CELL DISTRI WIDTH 12.6 % (0-14.5); WHITE BLOOD COUNT 7.7 10*3/uL (4.8-10.8)
--- NOTE | 2019-01-12 08:30 | NUR ---
PT RESTING IN BED, NO DISTRESS NOTED. PT DENIES ANY ABD PAIN/ NAUSEA AT THIS TIME.
[2019-01-12 08:33] LABS: ALBUMIN 2.6 gm/dl (3.1-4.5); CREATININE 1.4 mg/dL (0.55-1.02); PHOSPHOROUS 4.8 mg/dL (2.5-4.9); POTASSIUM 3.9 mmol/L (3.5-5.1)
[2019-01-12 08:58] LABS: ATYPICAL LYMPHS 1 % (0-0); BASOPHILS 1 % (0-1); PLATELET SUFFICIENCY NORMAL (NORMAL); ROULEAUX SLIGHT; TOTAL CELLS COUNTED 100 #CELLS
--- NOTE | 2019-01-12 09:10 | NUR ---
CT PREP STARTED AT THIS TIME.
[2019-01-12 12:00] VITALS: BP 131/49
--- NOTE | 2019-01-12 14:48 | NUR ---
PT OFF FLOOR FOR CT ABD AT THIS TIME.
[2019-01-12 16:00] VITALS: BP 126/45
[2019-01-12 20:00] VITALS: BP 142/50
[2019-01-13] VITALS: BP 128/40
[2019-01-13 06:40] LABS: HEMATOCRIT 32.5 % (37.0-47.0); HEMOGLOBIN 10.4 g/dl (12.0-16.0); MEAN CELL VOLUME 107.3 fl (81.0-99.0); MEAN CORPUSCULAR HGB 34.3 pg (27.0-31.0); MEAN PLATELET VOLUME 11.2 fl (9.6-12.3); PLATELET COUNT AUTOMATED 155 10*3/uL (130-400); RED BLOOD COUNT 3.03 10*6/uL (4.10-5.10); RED CELL DISTRI WIDTH 12.6 % (0-14.5); WHITE BLOOD COUNT 6.5 10*3/uL (4.8-10.8)
[2019-01-13 07:11] LABS: ALBUMIN 2.5 gm/dl (3.1-4.5); CREATININE 1.18 mg/dL (0.55-1.02); PHOSPHOROUS 3.3 mg/dL (2.5-4.9); POTASSIUM 3.8 mmol/L (3.5-5.1); TOTAL PROTEIN 5.9 gm/dL (6.4-8.2)
[2019-01-13 07:26] LABS: BASOPHILS 1 % (0-1); PLATELET SUFFICIENCY NORMAL (NORMAL); TOTAL CELLS COUNTED 100 #CELLS
[2019-01-13 08:00] VITALS: BP 123/45
--- NOTE | 2019-01-13 09:00 | NUR ---
PT RESTING IN BED, NO COMPLAINTS VOICED. PT DENIES ANY ABDOMINAL PAIN/NAUSEA. TOLERATING REGULAR DIET.
[2019-01-13 12:00] VITALS: BP 111/51
[2019-01-13 16:00] VITALS: BP 122/45
--- NOTE | 2019-01-13 16:00 | NUR ---
BEDSIDE REPORT OBTAINED FROM JARROD. PATIENT IS RESTING QUIETLY IN BED, EYES CLOSED. NO DISTRESS NOTED, RESP ARE ERND ON ROOM AIR. BED IS LOCKED IN LOWEST POSITION, ALARM MAINTAINED. CALL LIGHT LEFT WITHIN REACH.
--- NOTE | 2019-01-13 17:21 | NUR ---
PATIENT WAS MEDICATED WITH TYLENOL FRO C/O HEADACHE. WILL MONITOR
--- NOTE | 2019-01-13 18:21 | NUR ---
TYLENOL EFFECTIVE FOR TYLENOL
[2019-01-13 20:00] VITALS: BP 108/39
[2019-01-14] VITALS: BP 109/40
--- NOTE | 2019-01-14 03:59 | NUR ---
24 HR chart check completed.
--- NOTE | 2019-01-14 04:00 | NUR ---
SLEEPING, NO DISTRESS NOTED. CALL LIGHT WITHIN REACH
[2019-01-14 05:59] LABS: HEMATOCRIT 28.3 % (37.0-47.0); HEMOGLOBIN 9.1 g/dl (12.0-16.0); MEAN CELL VOLUME 107.2 fl (81.0-99.0); MEAN CORPUSCULAR HGB 34.5 pg (27.0-31.0); MEAN CORPUSCULAR HGB CONC 32.2 g/dl (33.0-37.0); MEAN PLATELET VOLUME 11.1 fl (9.6-12.3); PLATELET COUNT AUTOMATED 140 10*3/uL (130-400); RED BLOOD COUNT 2.64 10*6/uL (4.10-5.10); RED CELL DISTRI WIDTH 12.5 % (0-14.5); WHITE BLOOD COUNT 5.7 10*3/uL (4.8-10.8)
[2019-01-14 06:23] LABS: ALBUMIN 2.2 gm/dl (3.1-4.5); CREATININE 1.56 mg/dL (0.55-1.02); POTASSIUM 3.7 mmol/L (3.5-5.1); TOTAL PROTEIN 5.4 gm/dL (6.4-8.2)
[2019-01-14 08:00] VITALS: BP 122/49
[2019-01-14 08:05] LABS: ATYPICAL LYMPHS 1 % (0-0); PLATELET SUFFICIENCY NORMAL (NORMAL); SCHISTOCYTES FEW; TOTAL CELLS COUNTED 100 #CELLS
--- NOTE | 2019-01-14 09:00 | NUR ---
case management visits with patient, she states she will be returning home when medically stable, discussed with her VNA and she declines any services at this time, case management will follow
[2019-01-14 11:53] VITALS: BP 118/47
--- NOTE | 2019-01-14 14:07 | NUR ---
PT C/O OF PAIN TO LEFT LEG. LARGE HEMATOMA NOTED TO LEFT LOWER LEG. EDEMA NOTED WITH WEAK PPP. DR MIRANDA NOTIFIED. ORDERS TO FOLLOW.
[2019-01-14 16:00] VITALS: BP 126/44
[2019-01-14 20:00] VITALS: BP 124/50
[2019-01-15] VITALS: BP 119/42
--- NOTE | 2019-01-15 03:05 | NUR ---
24 HR CHART CHECK COMPLETE.
[2019-01-15 06:45] LABS: HEMATOCRIT 28.4 % (37.0-47.0); HEMOGLOBIN 8.9 g/dl (12.0-16.0); MEAN CELL VOLUME 107.6 fl (81.0-99.0); MEAN CORPUSCULAR HGB 33.7 pg (27.0-31.0); MEAN CORPUSCULAR HGB CONC 31.3 g/dl (33.0-37.0); MEAN PLATELET VOLUME 11.3 fl (9.6-12.3); PLATELET COUNT AUTOMATED 150 10*3/uL (130-400); RED BLOOD COUNT 2.64 10*6/uL (4.10-5.10); RED CELL DISTRI WIDTH 12.3 % (0-14.5); WHITE BLOOD COUNT 5.6 10*3/uL (4.8-10.8)
[2019-01-15 07:19] LABS: ALBUMIN 2.3 gm/dl (3.1-4.5); POTASSIUM 3.7 mmol/L (3.5-5.1); TOTAL PROTEIN 5.4 gm/dL (6.4-8.2)
[2019-01-15 07:21] LABS: CREATININE 1.07 mg/dL (0.55-1.02)
[2019-01-15 07:42] LABS: BASOPHILS 1 % (0-1); TOTAL CELLS COUNTED 100 #CELLS
[2019-01-15 07:43] LABS: PLATELET SUFFICIENCY NORMAL (NORMAL); POLYCHROMASIA SLIGHT; ROULEAUX SLIGHT
[2019-01-15 08:00] VITALS: BP 144/56
--- NOTE | 2019-01-15 08:00 | NUR ---
Patient resting quietly with no c/o discomfort. Respirations easy and regular. Vital signs stable. No overt distress. JARROD SINGH R
--- NOTE | 2019-01-15 09:00 | NUR ---
case management visits with patient, she stated she would be returning home when medically stable and denies any home needs
[2019-01-15 09:59] LABS: ACT PARTIAL THROMBO TIME 24.2 SECONDS (20.0-32.1)
--- NOTE | 2019-01-15 10:34 | NUR ---
PT NOTIFIED OF US RESULTS. HEPARIN STARTED PER POLICY/ORDERS.
--- NOTE | 2019-01-15 11:14 | NUR ---
case management received a message that patient would be going home on possibly xeralto, call [facility], spoke to [facility], pharmacist, she stated patient would have to pay $308 out of pocket for the first script due to not meeting the deductible yet, after that she would have to pay $47 a month, patient can get her script from [facility] pharmacy for less cost, she was agreeable to this, hospitalist nurse director notified
--- NOTE | 2019-01-15 11:45 | NUR ---
PHYSICAL THERAPY Physical therapy evaluation completed, 4E. Full details to follow. moderate complexity determined after chart review/evaluation, 565[address]. PT to work on strength, gait, endurance, balance, safety. Recommending home health or home with family 24 hour assist. thank you Mary Ann ferguson, PT, DPT
[2019-01-15 12:00] VITALS: BP 142/50
[2019-01-15] MEDS ORDERED: TAMSULOSIN HCL0.4 MG PO (13:46)
[2019-01-15] MEDS ORDERED: XARELTO1 EACH PO (13:47)
--- NOTE | 2019-01-15 15:52 | NUR ---
Discharge instructions reviewed with patient/family. Patient receptive and verbalizes understanding. Follow-up care arranged. Written instructions given to patient/family. JARROD SINGH
== END 2019-01-15 15:52 | disposition home or self-care (01) | DRG 693 ==
LOC: ED 20:24 → 4E 23:44 → EDHOLD 23:44 → 4E 23:58
PROVIDERS: Emergency Medicine; Hospitalist; Internal Medicine; Student in an Organized Health Care Education/Training Program; ADMIT Family Medicine
DX: N20.0 Calculus of kidney (principal); N17.0 Acute kidney failure with tubular necrosis; N39.0 Urinary tract infection, site not specified; I82.442 Acute embolism and thrombosis of left tibial vein; I82.411 Acute embolism and thrombosis of right femoral vein; E44.0 Moderate protein-calorie malnutrition; N20.1 Calculus of ureter; M06.9 Rheumatoid arthritis, unspecified; E11.22 Type 2 diabetes mellitus with diabetic chronic kidney disease; E86.0 Dehydration; N18.9 Chronic kidney disease, unspecified; E03.9 Hypothyroidism, unspecified; K59.01 Slow transit constipation; I12.9 Hypertensive chronic kidney disease with stage 1 through stage 4 chronic kidney disease, or unspecified chronic kidney disease; D63.8 Anemia in other chronic diseases classified elsewhere; E11.65 Type 2 diabetes mellitus with hyperglycemia; D53.9 Nutritional anemia, unspecified; B96.20 Unspecified Escherichia coli [E. coli] as the cause of diseases classified elsewhere; S80.12XA Contusion of left lower leg, initial encounter; X58.XXXA Exposure to other specified factors, initial encounter; Z87.01 Personal history of pneumonia (recurrent); Z90.89 Acquired absence of other organs; Z90.710 Acquired absence of both cervix and uterus; Z82.61 Family history of arthritis; I25.2 Old myocardial infarction; Z95.5 Presence of coronary angioplasty implant and graft; Z84.89 Family history of other specified conditions; Z88.8 Allergy status to other drugs, medicaments and biological substances; Z88.2 Allergy status to sulfonamides; Z79.899 Other long term (current) drug therapy; Z79.82 Long term (current) use of aspirin; Y93.89 Activity, other specified; Y92.89 Other specified places as the place of occurrence of the external cause; Y99.8 Other external cause status

== ENCOUNTER 2020-01-12 13:07 | Emergency (ER) | payer MEDICARE, OTHER ==
[~2020-01-12] VITALS: Ht 160 cm; Wt 68.0 kg
[~2020-01-12 13:07] MED LIST changes: +FIBER500 MG PO; +IRON325 M1 PO; +NORVASC5 MG PO; +PROBIOTIC1 EAC4 PO; +Synthroid,Lev125 MCG PO; +TAMSULOSIN HCL0.4 MG PO; +TRAMADOL HCL50 MG PO; +XARELTO1 EACH PO
[2020-01-12 14:04] LABS: BASO # 0.1 10*3/uL (0.0-0.1); BASO % 0.9 % (0.0-1.0); EOS # 0.1 10*3/uL (0.0-0.4); HEMATOCRIT 35.9 % (37.0-47.0); LYMPH # 3.3 10*3/uL (1.3-4.4); LYMPH % 33.6 % (27.0-41.0); MEAN CELL VOLUME 102.3 fl (81.0-99.0); MEAN CORPUSCULAR HGB 31.1 pg (27.0-31.0); MEAN CORPUSCULAR HGB CONC 30.4 g/dl (33.0-37.0); MEAN PLATELET VOLUME 10.5 fl (9.6-12.3); MONO # 0.8 10*3/uL (0.1-1.0); MONO % 7.7 % (3.0-9.0); NEUT # 5.3 10*3/uL (2.3-7.9); NEUT % 53.8 % (47.0-73.0); PLATELET COUNT AUTOMATED 243 10*3/uL (130-400); RED BLOOD COUNT 3.51 10*6/uL (4.10-5.10); RED CELL DISTRI WIDTH 13.3 % (0-14.5); WHITE BLOOD COUNT 9.9 10*3/uL (4.8-10.8)
[2020-01-12 14:20] LABS: CREATININE 1.27 mg/dL (0.55-1.02); POTASSIUM 4.4 mmol/L (3.5-5.1); TOTAL PROTEIN 7.1 gm/dL (6.4-8.2)
[2020-01-12 15:34] LABS: BILIRUBIN Negative (Negative); BLOOD 1+ (Negative); CLARITY Turbid (Clear); COLOR Yellow (Yellow); GLUCOSE Negative (Negative); KETONE Trace (Negative); LEUKO ESTERASE 3+ (Negative); NITRITE Negative (Negative); PH 7.5 (4.5-8.0); SPECIFIC GRAVITY 1.015 (1.001-1.030)
[2020-01-12 16:05] LABS: WBC 41-50 wbc/hpf (0-5)
[2020-01-12 16:06] LABS: EPITHELIAL CELLS 0-2; RBC 0-2 rbc/hpf (0-2)
[2020-01-12] MEDS ORDERED: CIPRO500 MG PO (16:15)
[2020-01-12] MEDS ORDERED: PYRIDIUM200 M1 PO (16:15)
== END 2020-01-12 17:53 | disposition home or self-care (01) ==
LOC: ED 13:07
PROVIDERS: Physician Assistant
DX: S93.401A Sprain of unspecified ligament of right ankle, initial encounter (principal); N39.0 Urinary tract infection, site not specified; Z88.2 Allergy status to sulfonamides; Z88.8 Allergy status to other drugs, medicaments and biological substances; Z79.899 Other long term (current) drug therapy; W18.39XA Other fall on same level, initial encounter; Y93.89 Activity, other specified; Y92.89 Other specified places as the place of occurrence of the external cause; Y99.8 Other external cause status

== ENCOUNTER 2020-01-15 16:59 | Inpatient (IN) | payer MEDICARE, OTHER ==
[~2020-01-15] VITALS: Ht 160 cm
[~2020-01-15 16:59] MED LIST changes: +CIPRO500 MG PO; +PYRIDIUM200 M1 PO
[2020-01-15 17:00] VITALS: BP 124/52
[2020-01-15 17:41] LABS: BASO # 0.1 10*3/uL (0.0-0.1); BASO % 0.7 % (0.0-1.0); EOS # 0.1 10*3/uL (0.0-0.4); EOS % 0.8 % (1.0-4.0); HEMATOCRIT 33.7 % (37.0-47.0); LYMPH # 3.2 10*3/uL (1.3-4.4); LYMPH % 33.1 % (27.0-41.0); MEAN CELL VOLUME 105.6 fl (81.0-99.0); MEAN CORPUSCULAR HGB 31.3 pg (27.0-31.0); MEAN CORPUSCULAR HGB CONC 29.7 g/dl (33.0-37.0); MEAN PLATELET VOLUME 10.3 fl (9.6-12.3); MONO # 0.9 10*3/uL (0.1-1.0); MONO % 9.1 % (3.0-9.0); NEUT # 5.2 10*3/uL (2.3-7.9); NEUT % 53.7 % (47.0-73.0); PLATELET COUNT AUTOMATED 234 10*3/uL (130-400); RED BLOOD COUNT 3.19 10*6/uL (4.10-5.10); RED CELL DISTRI WIDTH 13.5 % (0-14.5); WHITE BLOOD COUNT 9.6 10*3/uL (4.8-10.8)
[2020-01-15 18:04] LABS: BILIRUBIN 2+ (Negative); BLOOD 2+ (Negative); CLARITY Cloudy (Clear); COLOR Orange (Yellow); GLUCOSE Negative (Negative); KETONE 2+ (Negative); LEUKO ESTERASE 3+ (Negative); NITRITE Positive (Negative); PH 5.5 (4.5-8.0); SPECIFIC GRAVITY 1.015 (1.001-1.030)
[2020-01-15 18:06] LABS: ALBUMIN 2.8 gm/dl (3.1-4.5); CREATININE 1.78 mg/dL (0.55-1.02); POTASSIUM 4.5 mmol/L (3.5-5.1); TOTAL PROTEIN 6.6 gm/dL (6.4-8.2)
[2020-01-15 18:17] LABS: BACTERIA 2+; EPITHELIAL CELLS 0-2; MUCOUS TRACE; RBC 16-20 rbc/hpf (0-2); WBC TNTC wbc/hpf (0-5)
[2020-01-15 20:16] VITALS: BP 120/47
[2020-01-15 20:30] VITALS: BP 130/46
[2020-01-15] MEDS ORDERED: METFORMIN HYDR500 MG PO (21:49)
[2020-01-15] MEDS ORDERED: HYDROXYCHLOROQ200 M1 PO (21:51)
[2020-01-16] VITALS: BP 123/46
[2020-01-16 06:32] LABS: HEMATOCRIT 31.8 % (37.0-47.0); MEAN CELL VOLUME 104.3 fl (81.0-99.0); MEAN CORPUSCULAR HGB 30.8 pg (27.0-31.0); MEAN CORPUSCULAR HGB CONC 29.6 g/dl (33.0-37.0); MEAN PLATELET VOLUME 10.2 fl (9.6-12.3); PLATELET COUNT AUTOMATED 210 10*3/uL (130-400); RED BLOOD COUNT 3.05 10*6/uL (4.10-5.10); RED CELL DISTRI WIDTH 13.8 % (0-14.5); WHITE BLOOD COUNT 7.8 10*3/uL (4.8-10.8)
[2020-01-16 07:00] LABS: CREATININE 1.76 mg/dL (0.55-1.02); POTASSIUM 4.2 mmol/L (3.5-5.1)
[2020-01-16 07:14] LABS: BURR CELLS FEW; OVALOCYTES FEW; PLATELET SUFFICIENCY NORMAL (NORMAL); TOTAL CELLS COUNTED 100 #CELLS
[2020-01-16 08:00] VITALS: BP 126/50
[2020-01-16 12:00] VITALS: BP 121/41
[2020-01-16] MEDS ORDERED: DOXYCYCLINE MO100 M1 PO ×2 (12:21)
[2020-01-16] MEDS ORDERED: ZOFRAN4 MG PO ×2 (13:03)
[2020-01-16 16:00] VITALS: BP 117/52
[2020-01-16 20:00] VITALS: BP 124/48
[2020-01-17] VITALS: BP 110/42
[2020-01-17 06:09] LABS: HEMATOCRIT 29.7 % (37.0-47.0); MEAN CELL VOLUME 104.6 fl (81.0-99.0); MEAN CORPUSCULAR HGB CONC 29.6 g/dl (33.0-37.0); MEAN PLATELET VOLUME 10.3 fl (9.6-12.3); PLATELET COUNT AUTOMATED 208 10*3/uL (130-400); RED BLOOD COUNT 2.84 10*6/uL (4.10-5.10); RED CELL DISTRI WIDTH 13.9 % (0-14.5); WHITE BLOOD COUNT 7.5 10*3/uL (4.8-10.8)
[2020-01-17 06:19] LABS: CREATININE 1.66 mg/dL (0.55-1.02); POTASSIUM 3.8 mmol/L (3.5-5.1)
[2020-01-17 07:00] LABS: PLATELET SUFFICIENCY NORMAL (NORMAL); TOTAL CELLS COUNTED 100 #CELLS
[2020-01-17 08:00] VITALS: BP 143/57
[2020-01-17 12:00] VITALS: BP 137/45
[2020-01-17 16:00] VITALS: BP 132/62
[2020-01-17 20:00] VITALS: BP 126/30
[2020-01-17 20:32] VITALS: BP 110/60
[2020-01-18] VITALS: BP 121/40
[2020-01-18 05:58] LABS: HEMATOCRIT 28.8 % (37.0-47.0); MEAN CELL VOLUME 104.7 fl (81.0-99.0); MEAN CORPUSCULAR HGB 30.9 pg (27.0-31.0); MEAN CORPUSCULAR HGB CONC 29.5 g/dl (33.0-37.0); PLATELET COUNT AUTOMATED 172 10*3/uL (130-400); RED BLOOD COUNT 2.75 10*6/uL (4.10-5.10); RED CELL DISTRI WIDTH 14.1 % (0-14.5); WHITE BLOOD COUNT 7.2 10*3/uL (4.8-10.8)
[2020-01-18 05:59] LABS: CREATININE 1.36 mg/dL (0.55-1.02); POTASSIUM 3.9 mmol/L (3.5-5.1)
[2020-01-18 07:09] LABS: PLATELET SUFFICIENCY NORMAL (NORMAL); TOTAL CELLS COUNTED 100 #CELLS
[2020-01-18 08:00] VITALS: BP 145/50
[2020-01-18 12:00] VITALS: BP 138/54
[2020-01-18 16:00] VITALS: BP 111/81; BP 125/50
[2020-01-18 20:00] VITALS: BP 123/57
[2020-01-19 01:27] VITALS: BP 118/52
[2020-01-19 06:40] LABS: HEMATOCRIT 28.1 % (37.0-47.0); MEAN CELL VOLUME 103.7 fl (81.0-99.0); MEAN CORPUSCULAR HGB CONC 29.9 g/dl (33.0-37.0); MEAN PLATELET VOLUME 10.2 fl (9.6-12.3); PLATELET COUNT AUTOMATED 166 10*3/uL (130-400); RED BLOOD COUNT 2.71 10*6/uL (4.10-5.10); RED CELL DISTRI WIDTH 14.2 % (0-14.5); WHITE BLOOD COUNT 7.7 10*3/uL (4.8-10.8)
[2020-01-19 06:55] LABS: BUN 35 mg/dl (7-24); CHLORIDE 115 mmol/L (98-107); CREATININE 1.06 mg/dL (0.55-1.02); POTASSIUM 3.7 mmol/L (3.5-5.1); SODIUM 145 mmol/L (136-145)
[2020-01-19 08:00] VITALS: BP 141/55
[2020-01-19 08:32] LABS: ATYPICAL LYMPHS 1 % (0-0); BASOPHILS 2 % (0-1); OVALOCYTES MODERATE; PLATELET SUFFICIENCY NORMAL (NORMAL); TOTAL CELLS COUNTED 100 #CELLS
[2020-01-19] MEDS ORDERED: TRAMADOL HCL50 MG PO (10:26)
[2020-01-19] MEDS ORDERED: PHENERGAN25 M3 PO (10:29)
== END 2020-01-19 13:13 | disposition other institution (70) | DRG 682 ==
LOC: ED 16:59 → 5E 18:48 → EDHOLD 18:48 → 5E 20:05
PROVIDERS: Family Medicine; Internal Medicine; Physician Assistant; ADMIT Internal Medicine; ATTEND Internal Medicine
DX: N17.0 Acute kidney failure with tubular necrosis (principal); E43 Unspecified severe protein-calorie malnutrition; N30.01 Acute cystitis with hematuria; E11.22 Type 2 diabetes mellitus with diabetic chronic kidney disease; N18.31 Chronic kidney disease, stage 3a; Z79.84 Long term (current) use of oral hypoglycemic drugs; E89.0 Postprocedural hypothyroidism; I12.9 Hypertensive chronic kidney disease with stage 1 through stage 4 chronic kidney disease, or unspecified chronic kidney disease; R13.10 Dysphagia, unspecified; Z20.828 Contact with and (suspected) exposure to other viral communicable diseases; M06.9 Rheumatoid arthritis, unspecified; D53.9 Nutritional anemia, unspecified; E86.0 Dehydration; Z90.49 Acquired absence of other specified parts of digestive tract; Z90.710 Acquired absence of both cervix and uterus; Z88.2 Allergy status to sulfonamides; Z88.8 Allergy status to other drugs, medicaments and biological substances; Z79.82 Long term (current) use of aspirin; Z79.899 Other long term (current) drug therapy

== ENCOUNTER 2020-02-04 16:28 | Emergency (ER) | payer MEDICARE, OTHER ==
[~2020-02-04 16:28] MED LIST changes: +DOXYCYCLINE MO100 M1 PO; +HYDROXYCHLOROQ200 M1 PO; +METFORMIN HYDR500 MG PO; +PHENERGAN25 M3 PO; +ZOFRAN4 MG PO
[2020-02-04] MEDS ORDERED: COLACE100 MG PO (20:24)
== END 2020-02-04 20:44 | disposition home or self-care (01) ==
LOC: ED 16:28
DX: K59.00 Constipation, unspecified (principal)

== ENCOUNTER 2020-02-13 14:48 | Inpatient (IN) | payer MEDICARE, OTHER ==
[2020-02-13] VITALS (14 sets, daily range): BP systolic 112–144; BP diastolic 51–72
[~2020-02-13] VITALS: Ht 162.5 cm; Wt 61.3 kg
[~2020-02-13 14:48] MED LIST changes: +COLACE100 MG PO
--- NOTE | 2020-02-13 15:01 | NUR ---
COVID PRECAUTIONS STARTED
--- NOTE | 2020-02-13 15:15 | NUR ---
REPORT FROM BRADEN Jones RN AT THIS TIME
[2020-02-13 16:02] LABS: HEMATOCRIT 30.8 % (37.0-47.0); MEAN CELL VOLUME 104.4 fl (81.0-99.0); MEAN CORPUSCULAR HGB 31.2 pg (27.0-31.0); MEAN CORPUSCULAR HGB CONC 29.9 g/dl (33.0-37.0); MEAN PLATELET VOLUME 10.7 fl (9.6-12.3); PLATELET COUNT AUTOMATED 193 10*3/uL (130-400); RED BLOOD COUNT 2.95 10*6/uL (4.10-5.10); RED CELL DISTRI WIDTH 14.9 % (0-14.5); WHITE BLOOD COUNT 9.1 10*3/uL (4.8-10.8)
[2020-02-13 16:13] LABS: ACT PARTIAL THROMBO TIME 21.3 SECONDS (20.0-32.1)
[2020-02-13 16:40] LABS: BASOPHILS 1 % (0-1); TOTAL CELLS COUNTED 100 #CELLS
[2020-02-13 16:41] LABS: PLATELET SUFFICIENCY NORMAL (NORMAL)
[2020-02-13 16:52] LABS: ALBUMIN 2.2 gm/dl (3.1-4.5); CREATININE 1.69 mg/dL (0.55-1.02); POTASSIUM 3.7 mmol/L (3.5-5.1)
[2020-02-13 16:55] LABS: TROPONIN I 0.245 ng/ml (<0.045)
--- NOTE | 2020-02-13 18:05 | NUR ---
PATIENT GIVES VERBAL PERMISSION TO DISCUSS CARE WITH DAUGHTER IN LAW ADRIANNA PLASCENCIA AT THIS TIME.
--- NOTE | 2020-02-13 19:47 | NUR ---
PATIENT DENIES WOUNDS. STATES "I JUST HAVE BAD SKIN". MULTIPLE AREAS OF ECCHYMOSIS AND SKIN DISCOLORATION NOTED. ALERT AND ORIENTED
[2020-02-13 20:05] LABS: ABG BASE EXCESS 0.9 mmol/L (-2.0-2.0); ARTERIAL BLOOD GAS PH 7.444 (7.35-7.45)
[2020-02-13] MEDS ORDERED: BISACODYL10 MG R (20:26)
[2020-02-13] MEDS ORDERED: KEFLEX500 M1 PO (20:27)
[2020-02-13] MEDS ORDERED: DECADRON6 M1 PO (20:28)
[2020-02-13] MEDS ORDERED: FLEET MINERAL133 ML PO (20:35)
[2020-02-13] MEDS ORDERED: CORTIZONE 1028 GM T (20:36)
[2020-02-13] MEDS ORDERED: MILK OF MA400 MG/51 PO (20:38)
[2020-02-13] MEDS ORDERED: PREPARATION H C26 GM R (20:40)
[2020-02-13] MEDS ORDERED: PROVENTIL HFA6.7 GM INH (20:41)
[2020-02-13] MEDS ORDERED: VITAMIN C1000 M5 PO (20:42)
[2020-02-13] MEDS ORDERED: REMERON15 M2 PO (20:42)
[2020-02-13] MEDS ORDERED: CHOLECALCIFEROL1 GM MC (20:44)
[2020-02-13] MEDS ORDERED: ORAZINC PO (20:44)
--- NOTE | 2020-02-13 20:48 | NUR ---
DR JONAS NOTIFIED OF CONSULT. NO NEW ORDERS AT THIS TIME.
--- NOTE | 2020-02-13 23:00 | NUR ---
A 79, admitted to , under the services of SHAKIR Smalls DO with a diagnosis of SUSPECTED COVID, ACUTE RESPIRATORY FAILURE W HYPOXIA. Chief complaint is COUGH, SPO2 84% ON O2 AT PR. Patient arrived via bed from ER. Monitor applied. Initial assessment completed. Vital signs taken and recorded. SHAKIR SMALLS DO notified of admission to the unit. Orders received. See assessment for past medical history, medications and allergies. Patient and/or family oriented to unit. Clothing/patient valuable form completed. DIPAK LINDSEY
[2020-02-14] VITALS: BP 119/54
--- NOTE | 2020-02-14 01:49 | NUR ---
MED REC UPDATED PER [facility] PAPERS
[2020-02-14 03:34] LABS: HEMATOCRIT 28.7 % (37.0-47.0); MEAN CELL VOLUME 105.9 fl (81.0-99.0); MEAN CORPUSCULAR HGB 30.6 pg (27.0-31.0); MEAN CORPUSCULAR HGB CONC 28.9 g/dl (33.0-37.0); PLATELET COUNT AUTOMATED 179 10*3/uL (130-400); RED BLOOD COUNT 2.71 10*6/uL (4.10-5.10); RED CELL DISTRI WIDTH 14.8 % (0-14.5); WHITE BLOOD COUNT 9.8 10*3/uL (4.8-10.8)
[2020-02-14 03:54] LABS: ALBUMIN 2.2 gm/dl (3.1-4.5); CREATININE 1.56 mg/dL (0.55-1.02); POTASSIUM 4.3 mmol/L (3.5-5.1); TOTAL PROTEIN 5.9 gm/dL (6.4-8.2)
[2020-02-14 04:02] LABS: PLATELET SUFFICIENCY NORMAL (NORMAL); TOTAL CELLS COUNTED 100 #CELLS
--- NOTE | 2020-02-14 06:00 | NUR ---
HEPARIN GTT ADJUSTED PER PROTOCOL X2 RN
[2020-02-14 09:00] VITALS: BP 128/62
--- NOTE | 2020-02-14 09:00 | NUR ---
Conveyor Tender in to talk to patient. Patient states lives at home with family. There are no steps in the home. Physician: elizabeth wallace Pharmacy: Home health services: none at present Patient's level of ADLs: MODERATE ASSIST Patient has working utilities: all working DME: walker, shower chair, bedside commode, raised toilet seat, hospital bed Follow-up physician's appointment after d/c: will be made by hospitalist nurse director Does patient want to access PORTAL?: no Discharge plan discussed with patient, she currently is short term fci at [facility], she states she will return to [facility] when discharged, case management will follow. MONICA ANDINO
--- NOTE | 2020-02-14 09:29 | NUR ---
DR. CHAN OFFICE NOTIFIED OF CONSULT.
--- NOTE | 2020-02-14 10:27 | NUR ---
Patient comes in [facility], skilled. suspected Covid, will need test results prior to discharge.
--- NOTE | 2020-02-14 10:46 | NUR ---
PHYSICAL THERAPY Physical Therapy evaluation completed on 4E with full evaluation to follow. Moderate complexity skilled PT evaluation per chart review and evaluation, 6[address]. Patient is under Covid-19 suspection precautions, test pending. Recommend physical therapy per plan of care and SNF upon discharge. Thank you for this referral. Cintia Mitchell,PT,DPT
--- NOTE | 2020-02-14 10:50 | NUR ---
Occupational Therapy evaluation completed on four with full evaluation to follow. Recommend occupational therapy per plan of care and SNF upon discharge. Thank you for this referral. Maryanne Ashby OTR/L
[2020-02-14 12:00] VITALS: BP 118/72
[2020-02-14 12:22] LABS: VITAMIN D, 25-HYDROXY 22.3 ng/mL (30-100)
--- NOTE | 2020-02-14 14:31 | NUR ---
PT MEDICATED WITH PRN DULCOLAX FOR C/O CONSTIPATION. WILL REACCESS.
[2020-02-14 16:00] VITALS: BP 106/42
--- NOTE | 2020-02-14 17:45 | NUR ---
DR. LOCO INFORMED THAT THE PATIENT'S DAUGHTER IN LAW CALLED IN AND STATED THE PATIENT WAS BEING TREATED FOR A UTI AT THE SENIOR LIVING AND WAS ON DAY 5 OF 7. PER MED REQ PT WAS ON KEFLEX BID.
--- NOTE | 2020-02-14 18:27 | NUR ---
PT MEDICATED WITH PRN MOM FOR C/O CONSTIPATION.
[2020-02-14 20:00] VITALS: BP 115/51
--- NOTE | 2020-02-14 20:50 | NUR ---
NEW ORDERS RECEIVED FROM . SEE ORDERS.
--- NOTE | 2020-02-14 21:15 | NUR ---
ENTERED PATIENTS ROOM AT THIS TIME. PATIENT STATES SHE FEELS SICK. BASIN PROVIDED PATIENT THREW UP A SMALL AMOUNT. MEDICATED WITH PRN ZOFRAN WILL ASSESS EFFECTIVENESS. CALL LIGHT IN REACH.
--- NOTE | 2020-02-14 22:15 | NUR ---
DAVID HELPED PER PATIENT.
--- NOTE | 2020-02-14 23:37 | NUR ---
WANTED PATIENT STARTED BACK ON HEPARIN DRIP APTT ORDERED AND COMING BACK > 139.0. ORDERED ANTOTHER APTT FOR 6 HRS.
[2020-02-15] VITALS: BP 106/44
--- NOTE | 2020-02-15 03:48 | NUR ---
24 HR chart check completed.
[2020-02-15 06:22] LABS: BASO % 0.2 % (0.0-1.0); EOS % 0.1 % (1.0-4.0); HEMATOCRIT 25.7 % (37.0-47.0); LYMPH % 9.8 % (27.0-41.0); MEAN CELL VOLUME 103.6 fl (81.0-99.0); MEAN PLATELET VOLUME 10.8 fl (9.6-12.3); MONO # 0.2 10*3/uL (0.1-1.0); MONO % 2.3 % (3.0-9.0); NEUT # 8.7 10*3/uL (2.3-7.9); NEUT % 85.5 % (47.0-73.0); PLATELET COUNT AUTOMATED 187 10*3/uL (130-400); RED BLOOD COUNT 2.48 10*6/uL (4.10-5.10); RED CELL DISTRI WIDTH 14.8 % (0-14.5); WHITE BLOOD COUNT 10.2 10*3/uL (4.8-10.8)
[2020-02-15 06:41] LABS: ALBUMIN 2.2 gm/dl (3.1-4.5); CREATININE 1.96 mg/dL (0.55-1.02); POTASSIUM 4.5 mmol/L (3.5-5.1); TOTAL PROTEIN 5.8 gm/dL (6.4-8.2)
[2020-02-15 07:25] LABS: ACT PARTIAL THROMBO TIME 20.4 SECONDS (20.0-32.1)
[2020-02-15 08:00] VITALS: BP 106/46
--- NOTE | 2020-02-15 11:59 | NUR ---
18 QI ACCUCATH STARTED IN RIGHT UPPER USING ULTRASOUND GUIDANCE, ON FIRST ATTEMPT. GOOD BLOOD RETURN, PT TOLERATED WELL
[2020-02-15 12:00] VITALS: BP 111/56
--- NOTE | 2020-02-15 12:21 | NUR ---
TRANSFERRED TO [facility] AT THIS TIME WITHOUT INCIDENT. REPORT REC'D.
[2020-02-15 16:00] VITALS: BP 118/67
[2020-02-15 16:11] LABS: BILIRUBIN 1+ (Negative); BLOOD Negative (Negative); CLARITY Clear (Clear); COLOR Dark Yellow (Yellow); GLUCOSE Negative (Negative); KETONE Negative (Negative); LEUKO ESTERASE Trace (Negative); NITRITE Positive (Negative); SPECIFIC GRAVITY 1.015 (1.001-1.030)
--- NOTE | 2020-02-15 16:31 | NUR ---
PT STRAIGHT CATHED AT HTIS TIME FOR URINE SPECIMEN. PT TOLERATED WELL. OBTAINED 450CC OF DARK, SHARIFA, STRONG ODOROUS URINE.
[2020-02-15 16:36] LABS: BACTERIA 2+; HYALINE CAST 16-20; RBC 0-2 rbc/hpf (0-2)
[2020-02-15 20:00] VITALS: BP 119/60
[2020-02-16] VITALS: BP 103/47
--- NOTE | 2020-02-16 05:07 | NUR ---
PATIENT MEDICATED WITH TYLENOL FOR COMPLAINTS OF RECTAL PAIN. WILL MONITOR FOR EFFECTIVENESS. CALL LIGHT IN REACH.
--- NOTE | 2020-02-16 05:50 | NUR ---
TYLENOL NOT REALLY EFFECTIVE AT THIS TIME. PATIENT STATES RECTAL PAIN STILL THERE. SAYS SHE DOESN'T KNOW IF SHE NEEDS TO HAVE A BOWEL MOVEMENT OR WHAT. WILL CONTINUE TO MONITOR. RESPIRATIONS REGULAR AND NON-LABORED ON 4L N/C.
[2020-02-16 06:32] LABS: BASO % 0.1 % (0.0-1.0); LYMPH % 13.3 % (27.0-41.0); MEAN CELL VOLUME 102.6 fl (81.0-99.0); MEAN CORPUSCULAR HGB 30.8 pg (27.0-31.0); MONO # 0.2 10*3/uL (0.1-1.0); NEUT # 6.1 10*3/uL (2.3-7.9); NEUT % 80.6 % (47.0-73.0); NUCLEATED RED BLOOD CELL 0.3 % (0.0-0.0); PLATELET COUNT AUTOMATED 210 10*3/uL (130-400); RED BLOOD COUNT 2.34 10*6/uL (4.10-5.10); RED CELL DISTRI WIDTH 14.9 % (0-14.5); WHITE BLOOD COUNT 7.6 10*3/uL (4.8-10.8)
[2020-02-16 07:01] LABS: ALBUMIN 2.2 gm/dl (3.1-4.5); CREATININE 1.89 mg/dL (0.55-1.02); POTASSIUM 4.4 mmol/L (3.5-5.1); TOTAL PROTEIN 5.8 gm/dL (6.4-8.2)
[2020-02-16 07:56] VITALS: BP 118/60
--- NOTE | 2020-02-16 10:55 | NUR ---
PT REPORTING SOME RELIEF TO RECTAL AREA FOLLOWING SUPPOSITORY AT THIS TIME. WILL CONTINUE TO MONITOR.
[2020-02-16 12:00] VITALS: BP 114/56
--- NOTE | 2020-02-16 12:12 | NUR ---
NOTIFIED OF SKIN TEAR TO LEFT WRIST FOUND ON SKIN ASSESSMENT. NEW ORDERS OBTAINED.
[2020-02-16 16:00] VITALS: BP 115/52
[2020-02-16 20:00] VITALS: BP 119/54
[2020-02-17] VITALS (11 sets, daily range): BP systolic 104–156; BP diastolic 45–61
[2020-02-17 06:21] LABS: MEAN CELL VOLUME 101.1 fl (81.0-99.0); MEAN CORPUSCULAR HGB 31.4 pg (27.0-31.0); MEAN CORPUSCULAR HGB CONC 31.1 g/dl (33.0-37.0); MEAN PLATELET VOLUME 11.6 fl (9.6-12.3); NUCLEATED RED BLOOD CELL 0.5 % (0.0-0.0); PLATELET COUNT AUTOMATED 161 10*3/uL (130-400); RED BLOOD COUNT 1.88 10*6/uL (4.10-5.10); RED CELL DISTRI WIDTH 15.5 % (0-14.5); WHITE BLOOD COUNT 6.3 10*3/uL (4.8-10.8)
--- NOTE | 2020-02-17 06:25 | NUR ---
DR. MCCARTNEY NOTIFIED OF CRITICAL HEMOGLOBIN OF 5.9 AND HEMATOCRIT OF 19.0.
[2020-02-17 06:34] LABS: ALBUMIN 2.7 gm/dl (3.1-4.5); CREATININE 1.38 mg/dL (0.55-1.02); POTASSIUM 4.5 mmol/L (3.5-5.1); TOTAL PROTEIN 5.4 gm/dL (6.4-8.2)
[2020-02-17 06:51] LABS: PLATELET SUFFICIENCY NORMAL (NORMAL); TOTAL CELLS COUNTED 100 #CELLS
--- NOTE | 2020-02-17 08:17 | NUR ---
SUPERVISOR PERSONNEL CLERKS FAXED UPDATES TO [facility]. WILL NEED UPDATED PT/OT NOTES. PATIENT CAN RETURN WHEN MEDICALLY STABLE. COVID RESULTS ARE NEGATIVE.
--- NOTE | 2020-02-17 08:32 | NUR ---
BLOOD TRANSFUION INITIATED AT THIS TIME PER ORDER IN RIGHT UPPER ARM ACCUCATH.
--- NOTE | 2020-02-17 11:05 | NUR ---
OT NOTE Attempted to see pt this A.M. for OT session and upon arrival pt was supine in bed. Pt had reports of increased fatigue and declined therapy at this time. Will check back at a later time and continue with POC as able. ROBYN Mcleod/Lily
--- NOTE | 2020-02-17 11:06 | NUR ---
PHYSICAL THERAPY Patient was approached for therapy session this AM at 11:00 AM and patient had just finished receiving blood. Patient declined therapy saying, she was not feeling well enough to do therapy this morning. Patient's Nurse , JORJE RUBIO was informed of the patient not wanting to participate in therapy and she said the patient is disagreeble at times. Will check back with patient later today. FORTINO RENEE PROGRAM ASSOCIATE
--- NOTE | 2020-02-17 12:45 | NUR ---
OT NOTE Pt was seen this P.M. 1:1 for 20 minute OT session. Upon arrival pt was supine in bed. Pt identified by name and and had no complaints at this time. Pt completed rolling side to side in bed for increased I and improved technique in bed mobility and use of the bed willett. Pt was able to complete bed mobility side to side with modA X 2 for multiple attempts. Attempted to sit pt EOB and pt declined. While supine in bed pt completed AROM to BUE over all planes for 1 X 10 to increase and restore maximum functional use and strength. Pt was left supine in bed with call light in hand, tray table in place, and bed alarm activated for safety. Continue with rec D/C plan to SNF. ROBYN Mcleod/Lily
--- NOTE | 2020-02-17 12:49 | NUR ---
PHYSICAL THERAPY Patient presented to therapy in supine with head bed slighly elevated and bed alarm on. Patient reports no pain, but she does have constipation and associated cramps. Patient gives informed consent for treatment. Patient was identified by name and on wristband. Patient has one IV infusing at this time. Patient received blood transfusion earlier in the day. Patient does not want to sit up or attempt walking today. She does agree to rolling and supine exercises in bed. Patient performed rolling to R and then to L sides with MOD A X 2. Patient says she cannot move legs during rolling and needs assistance with them. Patient held her self in side-lying position for < 15 sec and then rolled back on to her back. Patient then performed bilateral LE ther ex x 10 reps each with AAROM in flexion of the hip (SLR), heel slides and hip abduction. Patient had no increased pain with ther ex. Patient was left in supine in bed with head of bed slightly elevated, call light within within reach and bed alarm on. Patient was 1:1 with this METHODS TIME ANALYST for 17 minutes total. FORTINO RENEE METHODS TIME ANALYST
--- NOTE | 2020-02-17 14:39 | NUR ---
PATIENT REFUSING TO DRINK COLO PREP.
[2020-02-17 16:51] LABS: HEMATOCRIT 26.5 % (37.0-47.0); MEAN CELL VOLUME 101.1 fl (81.0-99.0); MEAN CORPUSCULAR HGB 30.9 pg (27.0-31.0); MEAN CORPUSCULAR HGB CONC 30.6 g/dl (33.0-37.0); NUCLEATED RED BLOOD CELL 0.1 10*3/uL (0.0-0.0); NUCLEATED RED BLOOD CELL 0.8 % (0.0-0.0); PLATELET COUNT AUTOMATED 186 10*3/uL (130-400); RED BLOOD COUNT 2.62 10*6/uL (4.10-5.10); RED CELL DISTRI WIDTH 16.6 % (0-14.5); WHITE BLOOD COUNT 8.5 10*3/uL (4.8-10.8)
[2020-02-17 17:20] LABS: TOTAL CELLS COUNTED 100 #CELLS
[2020-02-17 17:22] LABS: BURR CELLS FEW; OVALOCYTES FEW
[2020-02-17 17:23] LABS: PLATELET SUFFICIENCY NORMAL (NORMAL)
[2020-02-18] VITALS (8 sets, daily range): BP systolic 99–163; BP diastolic 31–67
[2020-02-18 07:24] LABS: CHLORIDE 117 mmol/L (98-107); CREATININE 0.98 mg/dL (0.55-1.02); SODIUM 146 mmol/L (136-145)
[2020-02-18 07:25] LABS: HEMATOCRIT 26.2 % (37.0-47.0); MEAN CELL VOLUME 100.4 fl (81.0-99.0); MEAN CORPUSCULAR HGB 30.7 pg (27.0-31.0); MEAN CORPUSCULAR HGB CONC 30.5 g/dl (33.0-37.0); MEAN PLATELET VOLUME 10.5 fl (9.6-12.3); NUCLEATED RED BLOOD CELL 0.1 10*3/uL (0.0-0.0); NUCLEATED RED BLOOD CELL 0.6 % (0.0-0.0); PLATELET COUNT AUTOMATED 194 10*3/uL (130-400); RED BLOOD COUNT 2.61 10*6/uL (4.10-5.10); RED CELL DISTRI WIDTH 16.9 % (0-14.5); WHITE BLOOD COUNT 9.9 10*3/uL (4.8-10.8)
--- NOTE | 2020-02-18 07:35 | NUR ---
PT. UNAVAILABLE IN SURGERY.
[2020-02-18 07:44] LABS: BUN 35 mg/dl (7-24); POTASSIUM 3.5 mmol/L (3.5-5.1)
[2020-02-18 07:52] LABS: ATYPICAL LYMPHS 1 % (0-0); TOTAL CELLS COUNTED 100 #CELLS
[2020-02-18 07:53] LABS: OVALOCYTES FEW; PLATELET SUFFICIENCY NORMAL (NORMAL); POLYCHROMASIA SLIGHT; SCHISTOCYTES FEW
--- NOTE | 2020-02-18 10:39 | NUR ---
PT BLADDER SCANNED FOR 344CC WILL MONITOR
--- NOTE | 2020-02-18 11:14 | NUR ---
OT NOTE Pt was seen this A.M. 1:1 for 25 minute OT session. Upon arrival pt was supine in bed. Pt identified by name and and had complaints of generalized weakness and fatigue. Pt transferred supine to sit EOB with maxA X 2. Upon inital rise to the EOB pt presented with P+ sitting balance requiring modA to correct retrograde posture. After aprox 2 minutes pt was able to maintain F/F+ sitting balance. Pt tolerated sitting EOB for aprox 5 minutes before requesting to lay back into bed due to fatigue. Pt transferred sit to supine with maxA X 2. While supine in bed pt completed AROM to B shoulder, elbow, wrist, and digit joints over all planes for 1 X 10 to increase and restore maximum functional use/strength. At the end of the session pt completed rolling in bed side to side with modA X 2 while changing bed sheets and donning of depend. Pt was left supine in bed with call light in hand, tray table in place, and bed alarm activated for safety. Continue with rec D/C plan to SNF. ROBYN Mcleod/Lily
--- NOTE | 2020-02-18 11:46 | NUR ---
[facility] for [facility]hab. she would like to return to [facility] when discharged. patient having an EGD today, case management will follow
--- NOTE | 2020-02-18 11:53 | NUR ---
PHYSICAL THERAPY Patient presented to therapy in supine wit hhead of bed slightly elevated and bed alarm on. Patient has no spO2, no IVs, and no catheter. Patient reports no complaints. Patient gives informed consent for treatment. Patient was identified by name and on wristband. Patient rolls to L side with MOD A X 2. Patient performed SIDE-LYING <> sititng on EOB with MAX A X 2. Patient sat on EOB with MIN A X 1 to correct retrograde lean. After a few minutes the patient was sitting on EOB with SBA. Patient performed sitting tolerance on EOB with CGA. Patient performed became very fatigued after 10 minutes of sitting and wanted to lie down again. Patient was transferred back to supine in bed with MAX A X 2. Patient was left in supine in bed with head of bed elevated, call light within reach and bed alarm on. Patient was 1:1 with this SCHOOL CROSSING GUARD SUPERVISOR for 16 minutes total. FORTINO RENEE SCHOOL CROSSING GUARD SUPERVISOR
--- NOTE | 2020-02-18 12:36 | NUR ---
DR HOLDER CALLED AND NOTIFIED OF PT REFUSING TO DRINK PREP FOR SCHEDULED COLO YOMAIRA.
[2020-02-19] VITALS: BP 128/59
--- NOTE | 2020-02-19 06:32 | NUR ---
PATIENT BLADDER SCANNED. 335CC OF URINE NOTED IN BLADDER.
[2020-02-19 06:51] LABS: HEMATOCRIT 23.7 % (37.0-47.0); MEAN CELL VOLUME 98.3 fl (81.0-99.0); MEAN CORPUSCULAR HGB 30.7 pg (27.0-31.0); MEAN CORPUSCULAR HGB CONC 31.2 g/dl (33.0-37.0); MEAN PLATELET VOLUME 10.9 fl (9.6-12.3); NUCLEATED RED BLOOD CELL 0.3 % (0.0-0.0); PLATELET COUNT AUTOMATED 162 10*3/uL (130-400); RED BLOOD COUNT 2.41 10*6/uL (4.10-5.10); RED CELL DISTRI WIDTH 16.3 % (0-14.5)
[2020-02-19 07:02] LABS: BUN 25 mg/dl (7-24); CHLORIDE 117 mmol/L (98-107); POTASSIUM 3.8 mmol/L (3.5-5.1); SODIUM 144 mmol/L (136-145)
[2020-02-19 08:00] VITALS: BP 150/66
[2020-02-19 08:16] LABS: PLATELET SUFFICIENCY NORMAL (NORMAL); POLYCHROMASIA SLIGHT; TOTAL CELLS COUNTED 100 #CELLS
--- NOTE | 2020-02-19 09:51 | NUR ---
OT NOTE Pt was seen this A.M. 1:1 for 20 minute OT session. Upon arrival pt was supine in bed. Pt identified by name and and had complaints of increased fatigue and weakness. Pt completed rolling in bed side to side for increased I in bed mobility and pt required modA X 2 for rolling side to side. Pt then transferred supine to sit EOB with maxA X 2. While sitting EOB pt presented with F- sitting balance requiring UE support. Three sit to stand transfers were attempted from elevated bed surface and pt required maxA X 2 and use of w/w for UE support. With maxA X 2 pt was able to complete less than 50% of a full stand due to weakness and pt not bearing weight through BLE's. Pt transferred back into bed sit to supine with maxA X 2. There she was left with call light in hand, tray table in place, and bed alarm activated for safety. COntinue with rec D/C plan to SNF. ARLENE Mcleod
--- NOTE | 2020-02-19 10:23 | NUR ---
PHYSICAL THERAPY Patient presented to therapy in supine in bed with head of bed elevated and bed alarm on. Patient is not on spO2. Patient has no IVs at this time. Patient does not have a catheter. Patient gives informed consent for treatment. Patient was identified by name and on wristband. Patient has no complaints of pain. Patient log rolled to side-lying to L side with MAX A X 2. Patient side-lying to sitting on EOB with MAX A X 2. Patient sat on EOB with MOD A X 2 due to retrograde lean and leaning to the L side. Patient attempted STS from eob 3 SEPERATE TIMES AND WAS A MAX A X 2 each time. She was also unable to maintain standing for any length of time with her knees buckling each time she stood. Patient could not scoot herself back on bed herself, but required a MAX A X 2 body lift to move her hips back onto bed. Patient was unable to sit any longer because of fatigue and fearing she was going to fall and requested to go back to supine in bed. Patient required MAX A X 2 to sit EOB > supine in bed. Patient was moved up to head of bed with MAX A X 2. Patient was left in supine in bed with head of bed elevated, call light within reach and bedalarm on. Patient is recommended for SNF due to weakness, inability to transfer, perform bed mobility and inability to stand. Patient was 1:1 with this STAGE ELECTRICIAN for 22 minutes total. FORTINO RENEE STAGE ELECTRICIAN
--- NOTE | 2020-02-19 12:07 | NUR ---
HAND WASHER FAXED UPDATES TO [facility] FOR REVIEW.
--- NOTE | 2020-02-19 13:44 | NUR ---
UNABLE TO OBTAIN IV ACCESS AT THIS TIME RILEY DURON NOTIFIED
[2020-02-19 16:00] VITALS: BP 148/58
--- NOTE | 2020-02-19 17:25 | NUR ---
BLADDER SCANNED FOR 235
--- NOTE | 2020-02-19 18:22 | NUR ---
DR.EISENHART WRIGHT TO OBTAIN IV ACCESS, ORDER FOR PICC TO BE PLACED TOMORROW PRIOR TO COLO
--- NOTE | 2020-02-19 20:00 | NUR ---
YAAKOV FROM ANESTHESIA ABLE TO START A 22G IV IN PATIENTS RIGHT WRIST. PATIENT TOLERATED WELL. WILL CONTINUE TO MONITOR.
--- NOTE | 2020-02-19 22:00 | NUR ---
PATIENT REFUSING TO DRINK ANY MORE COLO PREP. STATES SHE CANT DRINK ANYMORE IT IS MAKING HER SICK. EXPLAINED TO PATIENT SHE WOULD NOT BE ABLE TO HAVE THE COLO DONE UNLESS SHE FINISHED IT. PATIENT STATES "I GUESS IM NOT HAVING IT THEN"
[2020-02-20] VITALS: BP 152/59
[2020-02-20 06:34] LABS: BASO % 0.4 % (0.0-1.0); HEMATOCRIT 24.2 % (37.0-47.0); LYMPH # 1.6 10*3/uL (1.3-4.4); LYMPH % 17.5 % (27.0-41.0); MEAN CORPUSCULAR HGB CONC 32.6 g/dl (33.0-37.0); MEAN PLATELET VOLUME 11.3 fl (9.6-12.3); MONO # 0.3 10*3/uL (0.1-1.0); MONO % 3.1 % (3.0-9.0); NEUT # 5.9 10*3/uL (2.3-7.9); NEUT % 66.4 % (47.0-73.0); NUCLEATED RED BLOOD CELL 0.4 % (0.0-0.0); PLATELET COUNT AUTOMATED 146 10*3/uL (130-400); RED BLOOD COUNT 2.55 10*6/uL (4.10-5.10); RED CELL DISTRI WIDTH 16.1 % (0-14.5); WHITE BLOOD COUNT 8.9 10*3/uL (4.8-10.8)
[2020-02-20 06:43] LABS: ALBUMIN 3.4 gm/dl (3.1-4.5); BUN 19 mg/dl (7-24); CHLORIDE 116 mmol/L (98-107); CREATININE 0.76 mg/dL (0.55-1.02); POTASSIUM 3.5 mmol/L (3.5-5.1); SODIUM 145 mmol/L (136-145)
[2020-02-20 07:07] LABS: MEAN CELL VOLUME 94.9 fl (81.0-99.0)
[2020-02-20 07:09] LABS: PLATELET SUFFICIENCY NORMAL (NORMAL); POLYCHROMASIA SLIGHT; TOTAL CELLS COUNTED 100 #CELLS
--- NOTE | 2020-02-20 07:51 | NUR ---
NOTIFIED DR. HOLDER THAT PATIENT IS REFUSED TO FINISH COLO PREP. SEE NEW ORDERS.
[2020-02-20 08:00] VITALS: BP 151/61
--- NOTE | 2020-02-20 09:33 | NUR ---
OT NOTE Attempted to see pt this A.M. for OT session and upon arrival pt was out of the room for xray. Will check back at a later time/date and continue with POC as able. ROBYN Mcleod/Lily
--- NOTE | 2020-02-20 10:55 | NUR ---
PHYSICAL THERAPY Patient was in Radiological procedure at 9:33 PM. Will check back with patient later. FORTINO RENEE LEAD LEVEL DESIGNER
[2020-02-20 12:00] VITALS: BP 156/68
--- NOTE | 2020-02-20 12:50 | NUR ---
ASSISTANT WINEMAKER RECEIVED CALL FROM PATIENTS DAUGHTER IN LAW ADRIANNA PLASCENCIA. SHE EXPRESSED CONCERN FOR PATIENT RETURNING HOME. ASSISTANT WINEMAKER ANSWERED ALL QUESTIONS AND REACHED OUT TO PT THERAPY TO CONFIRM QUESTIONS. FAMILY IS AGREEABLE FOR PATIENT TO RETURN TO [facility] WITH THE GOAL OF PATIENT EVENTUALLY RETURNING HOME AND HAVING 24HR CARE.
--- NOTE | 2020-02-20 14:03 | NUR ---
CALLLED AND SPOKE WITH DR BERMUDEZ REGARDING PT IV IN WRIST INFILTRATED PT ALSO REFUSING GLUCOSE CK AND BLADDER SCANS DR BERMUDEZ NOTIFIED
--- NOTE | 2020-02-20 14:43 | NUR ---
OT NOTE Attempted to see pt this P.M. for OT session and upon arrival pt was supine in bed. Pt declined therapy at this time due to complaints of increased fatigue and being "taken places and messed with all day. They have not given one minute to rest all day." Continue with rec D/C plan to SNF. ROBYN Mcleod/Lily
--- NOTE | 2020-02-20 15:03 | NUR ---
PHYSICAL THERAPY Patient was approached for her therapy session this afternoon and patient declined treatment saying she was not feeling well and very tired. patient states that she needs to rest becuase she had a procedure this AM and is very tired. Will check back with patient at a later date. FORTINO RENEE ENTERPRISE DATA ARCHITECT
[2020-02-20 16:00] VITALS: BP 152/56
--- NOTE | 2020-02-20 18:22 | NUR ---
COLE FROM SURGERY UNABLE TO GET A LINE IN PT. DR BERMUDEZ NOTIFIED
--- NOTE | 2020-02-20 18:25 | NUR ---
MULTIPLE ATTEMPT TO START A PICC LINE OR MIDLINE WERE UNSUCESSFUL. UNABLE TO THREAD WIRE WITHOUT COILING IN VEIN. PATIENTS RN NOTIFIED. COLE MEYERS RN
[2020-02-20 20:00] VITALS: BP 137/47
--- NOTE | 2020-02-20 21:05 | NUR ---
PT RESTING IN BED, REPOSITIONED IN BED. BILATERAL FEET ELEVATED ON PILLOW. BSG-175, NOT COVERED PT NOT EATING WELL. CALL LIGHT IN REACH. SEE SHIFT ASSESSMENT.
--- NOTE | 2020-02-21 00:30 | NUR ---
PT SLEEPING IN BED. RESP-EASY AND REGULAR. CALL LIGHT IN REACH. SEE SHIFT ASSESSMENT.
[2020-02-21 06:52] LABS: BUN 17 mg/dl (7-24); CHLORIDE 115 mmol/L (98-107); CREATININE 0.73 mg/dL (0.55-1.02); POTASSIUM 3.5 mmol/L (3.5-5.1); SODIUM 144 mmol/L (136-145)
[2020-02-21 08:00] VITALS: BP 166/69
--- NOTE | 2020-02-21 09:36 | NUR ---
OT NOTE Patient was seen this date for 15 minutes of 1:1 OT treatment. Patient was supine in bed upon arrival with HOB elevated. With encouragement, patient was agreeable to OT treatment, and she was identified by name/. Patient pre-activity was HR 82 bpm and when concluded was HR 91 bpm. Patient performed bed mobility with Max Ax2. Patient initially sat EOB for approx. 5 minutes initially with Min A support and progressed to CGA. While seated, patient required Max A to don B/L socks and she completed a hair grooming task seated unsupported with supervision. Patient declined standing at this time reporting "my back is aching", she did not rate severity. Patient returned supine in bed with Max Ax2. Patient's HOB was elevated per patient preference, B/L LEs elevated, call durand in hand, and all needs within reach. Continue with POC as able, recommend SNF at discharge. Thank you. Maryanne Ashby, OTR/L
--- NOTE | 2020-02-21 10:11 | NUR ---
PHYSICAL THERAPY Patient presented to therapy in supine with head of bed elevated and bed alarm on. Patient reports bilateral LE pain. Patient gives informed consent for treatment. Patient was identified by name and on [facility]. Patient reports being tired. Patient performed supine < > sitting on EOB with MAX A X 2. Patient sat on EOB with CGA - MIN A X 1 due to retrograde lean in sitting. Patient scooted onto the EOB with MAX A X 2. Patient sat on EOB for 5 minutes with CGA - SBA the longer she sat the less assistiance she needed. Patient performed sitting on EOB LAQs and heel/toe raises x 10 each for strengthening. Patient was moved from sitting > supine in bed with MAX A X 2. Patient was left in supine in bed with head of bed elevated and bed alarm on. Call light left within reach. YAHAIRA HAGEN present as witness to this treatment. Patient was 1:1 with this TOOL RADIAL DRILL PRESS SET UP OPERATOR for 18 minutes total. FORTINO RENEE TOOL RADIAL DRILL PRESS SET UP OPERATOR
[2020-02-21] MEDS ORDERED: DOXYCYCLINE100 M3 PO (10:38)
--- NOTE | 2020-02-21 11:48 | NUR ---
LOADING UNIT OPERATOR SEATING NOTIFIED OF PATIENT DISCHARGE. LOADING UNIT OPERATOR SEATING SPOKE WITH ANDREINA SAXENA. LOADING UNIT OPERATOR SEATING SPOKE WITH [facility] AND ARRANGED FOR A 1PM TRANSPORT FOR PATIENT TO RETURN TO . LOADING UNIT OPERATOR SEATING CONTACTED PATIENTS DAUGHTER IN LAW ADRIANNA PLASCENCIA SHE IS AWARE OF DISCHARGE/TRANSPORT. LOADING UNIT OPERATOR SEATING NOTIFIED MADDIE DODGE TO FAX DISCHARGE ORDERS TO [facility].
--- NOTE | 2020-02-21 13:13 | NUR ---
Discharge instructions reviewed with patient/family. Patient receptive and verbalizes understanding. Follow-up care arranged. Written instructions given to patient/family. ELIAS RODRIGUEZ
--- NOTE | 2020-02-21 15:50 | NUR ---
PHYSICAL THERAPY CO-SIGN I approve of the Physical Therapy notes written above. Micki Bloom PT
--- NOTE | 2020-02-21 15:53 | NUR ---
OCCUPATIONAL THERAPY CO-SIGN I approve of the Occupational Therapy notes written above. HIEU FREDERICK, OTR/L
== END 2020-02-21 13:13 | disposition other institution (70) | DRG 189 ==
LOC: ED 14:48 → EDHOLD 17:36 → 5E 17:36 → EDHOLD 17:41 → 4E 23:06 → 5E 02-15 12:09
PROVIDERS: Emergency Medicine; Internal Medicine; Registered Nurse; Student in an Organized Health Care Education/Training Program; ADMIT Internal Medicine; ATTEND Internal Medicine
PROC: 30233N1 Transfusion of Nonautologous Red Blood Cells into Peripheral Vein, Percutaneous Approach (ICD-10-PCS; principal; 2020-02-17)
PROC: 0DJ08ZZ Inspection of Upper Intestinal Tract, Via Natural or Artificial Opening Endoscopic (ICD-10-PCS; 2020-02-18)
PROC: 0DJDXZZ Inspection of Lower Intestinal Tract, External Approach (ICD-10-PCS; 2020-02-18)
DX: J96.21 Acute and chronic respiratory failure with hypoxia (principal); I21.4 Non-ST elevation (NSTEMI) myocardial infarction; N17.0 Acute kidney failure with tubular necrosis; J44.1 Chronic obstructive pulmonary disease with (acute) exacerbation; D62 Acute posthemorrhagic anemia; D68.59 Other primary thrombophilia; E44.0 Moderate protein-calorie malnutrition; I13.0 Hypertensive heart and chronic kidney disease with heart failure and stage 1 through stage 4 chronic kidney disease, or unspecified chronic kidney disease; Z51.5 Encounter for palliative care; Z66 Do not resuscitate; E83.41 Hypermagnesemia; I50.9 Heart failure, unspecified; N18.30 Chronic kidney disease, stage 3 unspecified; E87.8 Other disorders of electrolyte and fluid balance, not elsewhere classified; R74.01 Elevation of levels of liver transaminase levels; E11.8 Type 2 diabetes mellitus with unspecified complications; E89.0 Postprocedural hypothyroidism; R79.89 Other specified abnormal findings of blood chemistry; M06.9 Rheumatoid arthritis, unspecified; R53.81 Other malaise; K59.00 Constipation, unspecified; E11.22 Type 2 diabetes mellitus with diabetic chronic kidney disease; Z82.3 Family history of stroke; Z82.49 Family history of ischemic heart disease and other diseases of the circulatory system; Z79.82 Long term (current) use of aspirin; Z79.899 Other long term (current) drug therapy; Z86.718 Personal history of other venous thrombosis and embolism; Z95.5 Presence of coronary angioplasty implant and graft; Z90.710 Acquired absence of both cervix and uterus; I25.2 Old myocardial infarction; Z88.8 Allergy status to other drugs, medicaments and biological substances; Z88.2 Allergy status to sulfonamides; Z90.49 Acquired absence of other specified parts of digestive tract; Z68.23 Body mass index [BMI] 23.0-23.9, adult; Z20.828 Contact with and (suspected) exposure to other viral communicable diseases

== ENCOUNTER 2020-03-15 18:44 | Inpatient (IN) | payer MEDICARE, OTHER ==
[~2020-03-15] VITALS: Ht 162.5 cm; Wt 62.1 kg
[~2020-03-15 18:44] MED LIST changes: +BISACODYL10 MG R; +CHOLECALCIFEROL1 GM MC; +CORTIZONE 1028 GM T; +DECADRON6 M1 PO; +DOXYCYCLINE100 M3 PO; +FLEET MINERAL133 ML PO; +KEFLEX500 M1 PO; +MILK OF MA400 MG/51 PO; +ORAZINC PO; +PREPARATION H C26 GM R; +PROVENTIL HFA6.7 GM INH; +REMERON15 M2 PO; +VITAMIN C1000 M5 PO
[2020-03-15 18:46] VITALS: BP 127/47
[2020-03-15 19:20] LABS: BASO % 0.3 % (0.0-1.0); EOS % 0.3 % (1.0-4.0); HEMATOCRIT 31.9 % (37.0-47.0); LYMPH # 3.4 10*3/uL (1.3-4.4); LYMPH % 33.8 % (27.0-41.0); MEAN CELL VOLUME 102.9 fl (81.0-99.0); MEAN CORPUSCULAR HGB CONC 29.2 g/dl (33.0-37.0); MEAN PLATELET VOLUME 10.3 fl (9.6-12.3); MONO # 0.4 10*3/uL (0.1-1.0); MONO % 4.1 % (3.0-9.0); NEUT % 59.9 % (47.0-73.0); PLATELET COUNT AUTOMATED 216 10*3/uL (130-400); WHITE BLOOD COUNT 9.9 10*3/uL (4.8-10.8)
[2020-03-15 19:34] LABS: ALBUMIN 2.4 gm/dl (3.1-4.5); ALKALINE PHOSPHATASE 54 U/L (45-117); BUN 34 mg/dl (7-24); CHLORIDE 111 mmol/L (98-107); CREATININE 0.96 mg/dL (0.55-1.02); LIPASE 296 U/L (73-393); POTASSIUM 4.1 mmol/L (3.5-5.1); SGOT/AST 52 IU/L (3-35); SGPT/ALT 15 U/L (12-78); SODIUM 144 mmol/L (136-145); TOTAL PROTEIN 6.8 gm/dL (6.4-8.2)
[2020-03-15] MEDS ORDERED: ZOFRAN4 MG PO ×2 (23:02)
--- NOTE | 2020-03-15 23:50 | NUR ---
THIS RN CONTACTED PT NEXT OF KIN AT THIS TIME. NEXT OF KIN REQUESTS THAT UA IS COMPLETED BEFORE DISCHARGE. STATES THAT PT WILL NEED TRANSPORTED VIA EMS TO HOME D/T PT BEING UNABLE TO AMBULATE AND UNABLE TO SIT UP AT THIS TIME.
[2020-03-16 00:44] LABS: CLARITY Turbid (Clear); COLOR Yellow (Yellow)
[2020-03-16 00:45] LABS: BILIRUBIN Negative (Negative); BLOOD 3+ (Negative); GLUCOSE Negative (Negative); KETONE 1+ (Negative); LEUKO ESTERASE 2+ (Negative); NITRITE Negative (Negative); UROBILINOGEN 0.2 E.U./dl (0.0-1.0)
[2020-03-16 01:02] LABS: WBC TNTC wbc/hpf (0-5)
[2020-03-16 02:11] VITALS: BP 112/46
--- NOTE | 2020-03-16 02:17 | NUR ---
PT DENIES WOUNDS AT THIS TIME. THIS RN DID NOT VISUALIZE ANY DURING FRESHENING UP PT.
--- NOTE | 2020-03-16 03:22 | NUR ---
PT C/O NAUSEA AT THIS TIME. DR FARIAS CONTACTED AT THIS TIME.
--- NOTE | 2020-03-16 04:06 | NUR ---
PT STATES THAT MEDICATION WAS EFFECTIVE FOR NAUSEA AT THIS TIME. PT GIVEN WARM BLANKET. BEDRAILS X2 UP. CALL LIGHT WITH IN REACH.
--- NOTE | 2020-03-16 05:24 | NUR ---
JOHN WOUND CARE NURSE AND I CHECKED PT FROM HEAD TO TOE AND NO WOUNDS NOTED AT THIS TIME.
[2020-03-16 06:00] LABS: BUN 33 mg/dl (7-24); CHLORIDE 116 mmol/L (98-107); CREATININE 0.93 mg/dL (0.55-1.02); POTASSIUM 4.1 mmol/L (3.5-5.1); SODIUM 146 mmol/L (136-145)
[2020-03-16 06:12] LABS: BASO % 0.2 % (0.0-1.0); EOS % 0.2 % (1.0-4.0); HEMATOCRIT 30.3 % (37.0-47.0); LYMPH # 3.2 10*3/uL (1.3-4.4); LYMPH % 33.5 % (27.0-41.0); MEAN CELL VOLUME 104.1 fl (81.0-99.0); MEAN CORPUSCULAR HGB 30.6 pg (27.0-31.0); MEAN CORPUSCULAR HGB CONC 29.4 g/dl (33.0-37.0); MEAN PLATELET VOLUME 10.6 fl (9.6-12.3); MONO # 0.5 10*3/uL (0.1-1.0); NEUT # 5.8 10*3/uL (2.3-7.9); NEUT % 59.8 % (47.0-73.0); PLATELET COUNT AUTOMATED 214 10*3/uL (130-400); RED BLOOD COUNT 2.91 10*6/uL (4.10-5.10); WHITE BLOOD COUNT 9.7 10*3/uL (4.8-10.8)
--- NOTE | 2020-03-16 06:28 | NUR ---
PT RESTING ON COT WITH EYES CLOSED AT THIS TIME. PT STATES NAUSEA HAS RETURNED. MEDICATION NOT DUE AT THIS TIME. NO VOMITING AT THIS TIME. WILL CONTINUE TO MONITOR.
[2020-03-16 06:30] VITALS: BP 116/53
[2020-03-16 10:55] VITALS: BP 112/46
--- NOTE | 2020-03-16 11:40 | NUR ---
Spoke with Cintia from [facility]. Patient was recently discharged from the [facility] on 03/02/20 and picked up by [facility]. They stated patient is not doing well with therapy and is basically bed bound. [facility] spoke with patients HPOA daughter in law who stated they would like to switch patient from [facility] to [facility] hospice at home. Will notify hospitalists we need an order for hospice referral
--- NOTE | 2020-03-16 14:31 | NUR ---
Daughter has requested that [facility] home health is switched to [facility] hospice at home. received order, contacted [facility] and faxed. Patient will go home with [facility] hospice upon discharge.
[2020-03-16 17:56] VITALS: BP 113/46
[2020-03-16 18:45] VITALS: BP 110/50
--- NOTE | 2020-03-16 18:45 | NUR ---
Time: 1844 A 79 year old FEMALE admitted to 5E under services of KARIS VILLEGAS DO. Pt. arrived via stretcher from ER. Chief complaint: NAUSEA AND VOMITING AT HOME FOR 3 DAYS. ALMA WOODWARD
--- NOTE | 2020-03-16 19:05 | NUR ---
Report given to oncoming RN. Notified that medrec was unable to be completed due to pt arriving t 1845 and no family with pt. Assesment and other charting was completed in the 20 minutes that pt was on this floor.
[2020-03-16 20:00] VITALS: BP 128/58
--- NOTE | 2020-03-16 22:00 | NUR ---
DR. WOOD NOTIFIED THAT PATIENT'S HOME MED REQ IS UP TO DATE. VERIFIED MEDS WITH DAUGHTER IN LAW.
[2020-03-17] VITALS: BP 126/58
[2020-03-17 06:46] LABS: HEMATOCRIT 32.1 % (37.0-47.0); MEAN CORPUSCULAR HGB 30.5 pg (27.0-31.0); MEAN CORPUSCULAR HGB CONC 27.7 g/dl (33.0-37.0); MEAN PLATELET VOLUME 10.2 fl (9.6-12.3); NUCLEATED RED BLOOD CELL 0.3 % (0.0-0.0); PLATELET COUNT AUTOMATED 255 10*3/uL (130-400); RED BLOOD COUNT 2.92 10*6/uL (4.10-5.10); RED CELL DISTRI WIDTH 16.6 % (0-14.5); WHITE BLOOD COUNT 10.3 10*3/uL (4.8-10.8)
[2020-03-17 06:49] LABS: MEAN CELL VOLUME 109.9 fl (81.0-99.0)
[2020-03-17 07:07] LABS: CREATININE 1.24 mg/dL (0.55-1.02); POTASSIUM 3.9 mmol/L (3.5-5.1)
[2020-03-17 07:18] LABS: BURR CELLS FEW; PLATELET SUFFICIENCY NORMAL (NORMAL); ROULEAUX SLIGHT; SCHISTOCYTES FEW; TOTAL CELLS COUNTED 100 #CELLS
[2020-03-17 08:00] VITALS: BP 109/58
--- NOTE | 2020-03-17 11:46 | NUR ---
Spoke with Cintia from [facility]. Pt. is appropriate for Hospice at Home. Cintia is reaching out to Pt. daughter to inquire about equipment. Waiting on Home Oxygen Assessment.
[2020-03-17 12:00] VITALS: BP 108/48
--- NOTE | 2020-03-17 12:00 | NUR ---
HOME O2 ASSESSMENT: BP: 109/58, HR 110, RR 28, PULSE OX 86% ON ROOM AIR AT REST. PLACED 2 L/M ON PATIENT, PULSE OX >94%. PATIENT IS UNABLE TO WALK. CASE MANAGEMENT NOTIFIED.
--- NOTE | 2020-03-17 12:46 | NUR ---
Permission for family approved by Mary Barajas RN Director of 5E and Approved with Nurse Sonam for Family to Visit and Discuss admission to Hospice. Home Oxygen Order Faxed to [facility] Attn: Cintia.
--- NOTE | 2020-03-17 13:50 | NUR ---
Spoke with Cintia from [facility]. Pt. is appropriate for Hospice at Home. They received the Order for Oxygen. Family is coming to Discuss Hospice with the Pt. [employer] Of [employer] to Call Cintia with Family decision.
[2020-03-17 16:00] VITALS: BP 112/59
[2020-03-17 20:00] VITALS: BP 98/62
[2020-03-18] VITALS: BP 96/58
--- NOTE | 2020-03-18 07:30 | NUR ---
Family has agreed to Hospice at Home. Pt. will discharge Later today to Home with [facility]. Oxygen is being delivered between 8:30 and 12:00 p.m. Tami Sanchez Nurse Practitioner is aware and Pt. Nurse Dulce. Spoke with Cinita at [facility] this morning and advised of discharge Plans for today.
[2020-03-18 08:00] VITALS: BP 99/49
[2020-03-18] MEDS ORDERED: FEVER REDUCER650 MG R (08:17)
[2020-03-18] MEDS ORDERED: ZOFRAN 4 MG ED2 TAB SL (08:34)
--- NOTE | 2020-03-18 11:58 | NUR ---
Spoke with Pt. daughter In Law Kayla via telephone. Advised that Transportation has been arranged with [facility] to Transport with Co Founder time 2:00 p.m. Nurse Dulce is aware and Notified Tami Sanchez Nurse Practitioner. Hospice Nurse to be at the Home at Discharge.
[2020-03-18 12:00] VITALS: BP 77/35
--- NOTE | 2020-03-18 12:11 | NUR ---
Discharge Paperwork faxed to [facility] Attn: Cintia.
--- NOTE | 2020-03-18 14:15 | NUR ---
PT DISCHARGED HOME WITH HOSPICE AT THIS TIME. [place] REMOVED. PT TRANSPORTED VIA AMBULANCE.
== END 2020-03-18 14:15 | disposition hospice, home (50) | DRG 638 ==
LOC: ED 18:44 → 5E 03-16 01:38 → EDHOLD 03-16 01:38 → 5E 03-16 18:22
PROVIDERS: Internal Medicine; Student in an Organized Health Care Education/Training Program; ADMIT Internal Medicine; ATTEND Internal Medicine
DX: E11.649 Type 2 diabetes mellitus with hypoglycemia without coma (principal); N30.00 Acute cystitis without hematuria; E87.2 Acidosis; E87.0 Hyperosmolality and hypernatremia; I13.0 Hypertensive heart and chronic kidney disease with heart failure and stage 1 through stage 4 chronic kidney disease, or unspecified chronic kidney disease; N17.9 Acute kidney failure, unspecified; E88.09 Other disorders of plasma-protein metabolism, not elsewhere classified; N18.30 Chronic kidney disease, stage 3 unspecified; E89.0 Postprocedural hypothyroidism; D53.9 Nutritional anemia, unspecified; E87.8 Other disorders of electrolyte and fluid balance, not elsewhere classified; E86.0 Dehydration; M06.9 Rheumatoid arthritis, unspecified; Z51.5 Encounter for palliative care; Z86.718 Personal history of other venous thrombosis and embolism; I25.2 Old myocardial infarction; Z90.710 Acquired absence of both cervix and uterus; Z90.49 Acquired absence of other specified parts of digestive tract; Z88.2 Allergy status to sulfonamides; Z79.84 Long term (current) use of oral hypoglycemic drugs; Z88.8 Allergy status to other drugs, medicaments and biological substances; Z79.51 Long term (current) use of inhaled steroids; Z79.82 Long term (current) use of aspirin; Z79.899 Other long term (current) drug therapy